=== PATIENT | female | born 1965 | race Caucasian/White ===

== ENCOUNTER → 2020-12-18 10:37 | Outpatient (BNVA) | payer SELFPAY | PROVIDERS: PCP Nurse Practitioner; Visit Provider Dermatology | DX: Z01.89 Encounter for other specified special examinations (principal) ==

== ENCOUNTER → 2021-03-26 08:35 | Outpatient (BNVA) | payer MEDICAID, SELFPAY | PROVIDERS: PCP Nurse Practitioner; Visit Provider Nurse Practitioner | DX: Z00.00 Encounter for general adult medical examination without abnormal findings (principal); Z12.39 Encounter for other screening for malignant neoplasm of breast; Z12.11 Encounter for screening for malignant neoplasm of colon; E66.3 Overweight; Z12.4 Encounter for screening for malignant neoplasm of cervix; Z78.0 Asymptomatic menopausal state | CPT/HCPCS: 88175 ==

== ENCOUNTER 2021-04-02 10:39 | Outpatient (CLI) | payer SELFPAY ==
--- NOTE | 2021-04-02 11:00 | MM_ITS ---
WS: [id number] SCREENING DIGITAL MAMMOGRAM WITH CAD HISTORY: Z12.39 - Encounter for other screening for malignant neoplasm... COMPARISON: None available. Bilateral CC and MLO views submitted. Computer aided detection analyzed. Breast composition: There are scattered areas of fibroglandular density. Subtle asymmetry measuring 6 mm in the anterior lateral LEFT breast near 2:00. This needs further evaluation. Otherwise negative. MM/[place] [id number] IMPRESSION: BI-RADS: 0-Incomplete: Need additional imaging evaluation FOLLOW UP: Need Additional Imaging LEFT breast: Spot compression views (CC and MLO). True ML. Ultrasound to follow if abnormality persists.
== END 2021-04-02 10:40 | disposition home or self-care (01) ==
LOC: RADSHAW 10:44
PROVIDERS: PCP Nurse Practitioner; Visit Provider Nurse Practitioner
DX: Z12.31 Encounter for screening mammogram for malignant neoplasm of breast (principal)
CPT/HCPCS: 77067

== ENCOUNTER → 2021-06-07 08:57 | Outpatient (BNVA) | payer MEDICAID, SELFPAY | PROVIDERS: PCP Nurse Practitioner; Visit Provider Nurse Practitioner | DX: E55.9 Vitamin D deficiency, unspecified (principal) | CPT/HCPCS: 80053; 82306 ==

== ENCOUNTER 2021-06-13 12:35 | Outpatient (CLI) | payer MEDICAID, SELFPAY ==
--- NOTE | 2021-06-13 14:30 | MM_ITS ---
WS: [id number] ADDITIONAL VIEWS LEFT MAMMOGRAM LEFT BREAST ULTRASOUND HISTORY: R92.8 - Other abnormal and inconclusive findings on diagnostic mammogram... COMPARISON: 04/02/2021 LEFT MAMMOGRAM: Spot compression views and true ML. Focal asymmetry measuring 5.3 mm persists in the anterior LEFT breast towards the upper outer quadran t. No distortion. LEFT BREAST ULTRASOUND 2-D and color Doppler imaging submitted. Ultrasound is directed to the LEFT breast in the upper outer quadrant. There is a very vague hypoecho ic nodule measuring 4 x 2 x 3 mm at 2:00, 3 cm from the nipple which probably corresponds to the mamm ographic abnormality. This is not a cyst. MM/[place] [id number] IMPRESSION: BI-RADS: 4-Suspicious Finding-Biopsy Should Be Considered FOLLOW UP: Biopsy Recommended Ultrasound-guided biopsy recommended of the 4 mm nodule LEFT breast at 2:00. Notified DOROTA Morrell at 06/13/2021 4:30 PM. Report called to the jing bhagat.
--- NOTE | 2021-06-13 15:00 | US_ITS ---
WS: [id number] ADDITIONAL VIEWS LEFT MAMMOGRAM LEFT BREAST ULTRASOUND HISTORY: R92.8 - Other abnormal and inconclusive findings on diagnostic mammogram... COMPARISON: 04/02/2021 LEFT MAMMOGRAM: Spot compression views and true ML. Focal asymmetry measuring 5.3 mm persists in the anterior LEFT breast towards the upper outer quadran t. No distortion. LEFT BREAST ULTRASOUND 2-D and color Doppler imaging submitted. Ultrasound is directed to the LEFT breast in the upper outer quadrant. There is a very vague hypoecho ic nodule measuring 4 x 2 x 3 mm at 2:00, 3 cm from the nipple which probably corresponds to the mamm ographic abnormality. This is not a cyst. US/US breast LT limited* [id number] IMPRESSION: BI-RADS: 4-Suspicious Finding-Biopsy Should Be Considered FOLLOW UP: Biopsy Recommended Ultrasound-guided biopsy recommended of the 4 mm nodule LEFT breast at 2:00. Notified DOROTA Morrell at 06/13/2021 4:30 PM. Report called to the jing bhagat.
== END 2021-06-13 12:36 | disposition home or self-care (01) ==
PROVIDERS: PCP Nurse Practitioner; Visit Provider Nurse Practitioner
DX: R92.8 Other abnormal and inconclusive findings on diagnostic imaging of breast (principal); N63.21 Unspecified lump in the left breast, upper outer quadrant
CPT/HCPCS: 76642; 77065

== ENCOUNTER 2021-07-01 07:43 | Outpatient (CLI) | payer MEDICAID, SELFPAY ==
--- NOTE | 2021-07-01 08:00 | US_ITS ---
WS: [id number] ULTRASOUND LEFT BREAST HISTORY: Abnormal LEFT breast ultrasound. COMPARISON: 04/02/2021 and 06/13/2021 TECHNIQUE: 2-D and Doppler. Patient presents for biopsy of a very vague abnormality seen in the LEFT breast by ultrasound on 05/29 and mammographically 04/02/2021. The area of concern is not definitely identified on today's examination. There is a very vague area o f decreased attenuation at 2:00, 3 cm from the nipple. At this time this is not concerning enough to biopsy. I have explained this to the patient. Recommend patient return at 6 months for diagnostic guera mogram. US/US breast LT limited* [id number] IMPRESSION: BI-RADS: 3-Probably Benign FOLLOW-UP: 6 Month Follow-up Patient should return at the 6 month interval to reevaluate the LEFT breast and possible ultrasound of the very vague abnormality described. Six-month evaluat ion would be in September 2021. Diagnostic LEFT breast and possible ultrasound foll ow-up.
== END 2021-07-01 07:44 | disposition home or self-care (01) ==
LOC: RAD 07:46
PROVIDERS: PCP Nurse Practitioner; Visit Provider Nurse Practitioner
DX: R92.8 Other abnormal and inconclusive findings on diagnostic imaging of breast (principal)
CPT/HCPCS: 76642

== ENCOUNTER → 2021-07-08 17:12 | Outpatient (BNVA) | payer MEDICAID, SELFPAY | PROVIDERS: PCP Nurse Practitioner; Visit Provider Nurse Practitioner | DX: R87.619 Unspecified abnormal cytological findings in specimens from cervix uteri (principal) | CPT/HCPCS: 88175 ==

== ENCOUNTER 2021-11-03 12:22 | Emergency (ER) | payer MEDICAID, SELFPAY ==
[2021-11-03 12:26] VITALS: BP 155/95; PULSE 77; RESP 18; TEMP 36.6; O2SAT 98
--- NOTE | 2021-11-03 12:33 | W.ED.ANIMALB ---
HPI - Animal Bite General: Chief Complaint: Animal Bite Stated Complaint: Copperhead bite Time Seen by Provider: 11/03/21 12:28 Source: patient Mode of arrival: ambulatory Limitations: no limitations History of Present Illness: 56-year-old female who states that 30 minutes before arrival she was bit in the right foot by a copperhead. She does have a bite natali to the foot with some swelling to the ankle states she has pain she rates a 6 out of 10 denies any shortness of breath denies any worsening improving factors. Associated symptoms: Deny chills, fever(s) or headache(s) Review of Systems Const: Denies: fever(s), chills, body aches or change in appetite Eyes: Denies: blurry vision or eye discomfort ENMT: Denies: throat pain or dental pain Card: Denies: chest pain Resp: Denies: dyspnea GI: Denies: abdominal pain, nausea, vomiting or diarrhea : Denies: dysuria Musc: Denies: neck pain or back pain Skin/Breast: Denies: rash Neuro: Denies: headache(s) Psych: Denies: depression Bryan/Lymph: Denies: easy bruising All/Imm: Denies: urticaria PFSH ED PFSH: Medical History Overweight (BMI 25.0-29.9) Surgical History History of tubal ligation Family History Other Diabetes Hypertension Denies family history of Dementia Chronic kidney disease (CKD) Lung disease Cancer Stroke Social History Second hand smoke exposure: No Smoking risk assessment/counseling performed?: Yes Alcohol intake: never Desire information about alcohol rehabilitation?: No Counseling given: No Desire information about substance/drug rehabilitation?: No Counseling given: No Adopted: No Caregiver/support person: No Lives independently: Yes Household members: spouse Housing: House Marital status: Number of children: 2 service: No Current occupational status: unemployed Pets and animals: Yes Current gender identity: Female Physical Exam Const: COMMON NORMALS: no acute distress, patient oriented x3 and healthy appearing HENMT: COMMON NORMALS: normocephalic and atraumatic HEAD & SCALP: normocephalic and atraumatic Eye: COMMON NORMALS: Equal, round and reactive pupils present and EOMs intact bilaterally PUPIL: Yes Equal, round and reactive pupils present Neck/C-Spine: COMMON NORMALS: full ROM and supple Chest: COMMONS NORMALS: normal inspection of the chest and normal palpation of entire chest wall Resp: COMMON NORMALS: normal respiratory effort, No retractions, No use of accessory muscles and clear to auscultation bilaterally AUSCULTATION: clear to auscultation bilaterally Cardio: COMMON NORMALS: regular rate, regular rhythm and No murmurs present (Cardio) RATE: regular rate RHYTHM: regular rhythm GI: COMMON NORMALS: Normal to inspection, nondistended, normoactive bowel sounds present, Soft to palpation, non-tender and no masses PALPATION: Yes Soft to palpation Extremity: NARRATIVE EXTREMITY EXAM: swelling to right foot with bite natali Neuro: COMMON NORMALS: patient oriented x3, moves all extremities and no focal motor deficits Psych: COMMON NORMALS: mental status grossly normal, Normal thought process present and cooperative THOUGHT PROCESS: Normal thought process present Skin: COMMON NORMALS: no rashes or lesions noted and no wounds GENERAL SKIN EXAM: no rashes or lesions noted Course Vital Signs: Vital signs: Vital Signs Temperature 97.8 F 11/03/21 12:26 Pulse Rate 74 11/03/21 12:46 Respiratory Rate 16 11/03/21 12:46 Blood Pressure 143/96 11/03/21 12:46 Pulse Oximetry 97 11/03/21 12:46 MDM - Animal Bite Medical Decision Making Patient presents here with a copperhead snake bite she has very minimal swelling did observe her for 2 hours she has had no worsening minimal pain her blood work here is all normal she is stable for discharge we will prescribe her hydrocodone for home informed if she has worsening swelling she is return she understands and agrees to plan. Lab Data : 11/03/21 12:40 11/03/21 13:01 Laboratory Results WBC 9.2 10^3/uL (4.0-10.0) 11/03/21 12:40 RBC 4.82 10^6/uL (4.1-5.3) 11/03/21 12:40 Hgb 13.9 g/dL (11.5-15.3) 11/03/21 12:40 Hct 43.7 % (37.0-47.0) 11/03/21 12:40 MCV 90.7 fl (81-99) 11/03/21 12:40 MCH 28.8 pg (28.0-34.0) 11/03/21 12:40 MCHC 31.8 g/dL (30.0-36.0) 11/03/21 12:40 RDW 13.8 % (12.1-15.1) 11/03/21 12:40 Plt Count 323 10^3/cmm (130-400) 11/03/21 12:40 MPV 10.2 fL (7.4-10.4) 11/03/21 12:40 Neut % (Auto) 53.9 % 11/03/21 12:40 Lymph % (Auto) 34.3 % 11/03/21 12:40 [place] % (Auto) 8.9 % 11/03/21 12:40 Eos % (Auto) 1.7 % 11/03/21 12:40 Baso % (Auto) 0.8 % 11/03/21 12:40 Neut # (Auto) 4.95 10^3/uL (1.8-7.7) 11/03/21 12:40 Lymph # (Auto) 3.2 10^3/uL (0.8-4.8) 11/03/21 12:40 [place] # (Auto) 0.8 10^3/uL (0.2-0.9) 11/03/21 12:40 Eos # (Auto) 0.2 10^3/uL (0.0-0.8) 11/03/21 12:40 Baso # (Auto) 0.1 10^3/uL (0.0-0.1) 11/03/21 12:40 Nucleated RBC % (auto) 0 % 11/03/21 12:40 Nucleated RBCs # 0.0 /100WBC 11/03/21 12:40 PT 13.20 SECONDS (12.1-14.9) 11/03/21 13:01 INR 0.97 (0.8-1.2) 11/03/21 13:01 D-Dimer 0.43 ug/mIFEU (0-0.59) 11/03/21 13:01 Sodium 141 mmol/L (136-145) 11/03/21 13:01 Potassium 3.8 mmol/L (3.5-5.1) 11/03/21 13:01 Chloride 106 mmol/L (98-107) 11/03/21 13:01 Carbon Dioxide 25 mmol/L (22-29) 11/03/21 13:01 Anion Gap 13.8 (5-19) 11/03/21 13:01 BUN 12 mg/dL (6-20) 11/03/21 13:01 Creatinine 0.8 mg/dL (0.5-0.9) 11/03/21 13:01 GFR Calculation Cancelled 11/03/21 12:40 Glucose 107 mg/dL (65-115) 11/03/21 13:01 Calculated Osmolality 292 mOsm/kg (285-295) 11/03/21 13:01 Calcium 9.4 mg/dL (8.5-10.5) 11/03/21 13:01 Total Bilirubin 0.2 mg/dL (0.15-1.2) 11/03/21 13:01 AST 16 U/L (0-32) 11/03/21 13:01 ALT 19 U/L (0-33) 11/03/21 13:01 Alkaline Phosphatase Cancelled 11/03/21 12:40 Total Protein 7.3 g/dL (6.6-8.7) 11/03/21 13:01 Albumin 4.1 g/dL (3.5-5.2) 11/03/21 13:01 Globulin 3.2 g/dL (1.3-4.6) 11/03/21 13:01 Discharge Plan Discharge Patient Disposition: Home Clinical Impression: Snake bite Qualifiers: Encounter type: initial encounter Qualified Code(s): W59.11XA - Bitten by nonvenomous snake, initial encounter Condition: Stable Prescriptions: New hydrocodone-acetaminophen 5-325 mg tablet 1 tab PO Q6H PRN (Reason: pain) Qty: 14 0RF No Action cholecalciferol (vitamin D3) 50 mcg (2,000 unit) tablet 50 mcg PO DAILY Qty: 30 0RF Rx Instructions: getting OTC fluticasone propionate [Flonase Allergy Relief] 50 mcg/actuation spray,suspension 2 spray intranasal DAILY Qty: 16 0RF Rx Instructions: administer into each nostril montelukast [Singulair] 10 mg tablet 10 mg PO DAILY Qty: 30 5RF Discharge Orders: Discharge ED (Routine); Ordered 11/03/21 Ordered By: Dalton Reyes Referrals: Colleen Lassiter, MARKETING EDUCATION TEACHER-C [Primary Care Provider] - 1-3 days Discharge Diet: Advance as tolerated Discharge Activity: Resume usual activity Patient Instructions: Snakebite, Opioid Safety Coding Level of Care Code ED Area Loss Prevention Manager for Chg Fwd Exam Comprehensive
[2021-11-03] MEDS: acetaminophen 325 mg Tablet 650 MG PO (12:45)
[2021-11-03 12:46] VITALS: BP 143/96; PULSE 74; RESP 16; O2SAT 97
[2021-11-03 12:50] LABS: Basophils # 0.1 10^3/uL (0.0-0.1); Basophils % 0.8 %; Eosinophils # 0.2 10^3/uL (0.0-0.8); Eosinophils % 1.7 %; Hematocrit 43.7 % (37.0-47.0); Hemoglobin 13.9 g/dL (11.5-15.3); Lymphocytes # 3.2 10^3/uL (0.8-4.8); Lymphocytes % 34.3 %; Mean Corpuscular HGB Conc 31.8 g/dL (30.0-36.0); Mean Corpuscular Hemoglobin 28.8 pg (28.0-34.0); Mean Corpuscular Volume 90.7 fl (81-99); Mean Platelet Volume 10.2 fL (7.4-10.4); Monocytes # 0.8 10^3/uL (0.2-0.9); Monocytes % 8.9 %; Neutrophils # 4.95 10^3/uL (1.8-7.7); Neutrophils % 53.9 %; Nucleated Red Blood Cells % 0 %; Platelet Count 323 10^3/cmm (130-400); Red Blood Count 4.82 10^6/uL (4.1-5.3); Red Cell Distribution Width 13.8 % (12.1-15.1); White Blood Count 9.2 10^3/uL (4.0-10.0)
[2021-11-03 13:22] LABS: INR 0.97 (0.8-1.2)
[2021-11-03 13:25] LABS: D Dimer 0.43 ug/mIFEU (0-0.59)
[2021-11-03 13:29] LABS: Alanine Aminotransferase 19 U/L (0-33); Albumin Level 4.1 g/dL (3.5-5.2); Alkaline Phosphatase 123 IU/L (35-105); Anion Gap 13.8 (5-19); Aspartate Amino Transferase 16 U/L (0-32); Blood Urea Nitrogen 12 mg/dL (6-20); Calcium 9.4 mg/dL (8.5-10.5); Carbon Dioxide 25 mmol/L (22-29); Chloride 106 mmol/L (98-107); Globulin 3.2 g/dL (1.3-4.6); Glomerular Filtration Rate 73.9 mL/min (90-130); Glucose 107 mg/dL (65-115); Osmolality Calculated 292 mOsm/kg (285-295); Potassium 3.8 mmol/L (3.5-5.1); Sodium 141 mmol/L (136-145); Total Bilirubin 0.2 mg/dL (0.15-1.2); Total Protein 7.3 g/dL (6.6-8.7)
[2021-11-03 14:32] VITALS: BP 135/83; PULSE 71; O2SAT 100
== END 2021-11-03 14:33 | disposition home or self-care (01) ==
PROVIDERS: Emergency Provider Emergency Medicine; PCP Nurse Practitioner
DX: T63.091A Toxic effect of venom of other snake, accidental (unintentional), initial encounter (principal); M79.89 Other specified soft tissue disorders
CPT/HCPCS: 80053; 85025; 85378; 85610; 99283

== ENCOUNTER 2021-12-19 07:46 | Outpatient (CLI) | payer MEDICAID, SELFPAY ==
--- NOTE | 2021-12-19 07:51 | MM_ITS ---
WS: [id number] LEFT DIGITAL BREAST TOMOSYNTHESIS MAMMOGRAPHY WITH CAD. LEFT breast ultrasound, limited HISTORY: 6 month follow-up mammographic abnormality. COMPARISON: 06/13/2021, 04/02/2021 and 07/01/2021 Technique: CC, MLO and ML views. Spot compression CC and MLO. Breast composition: There are scattered areas of fibroglandular density. The asymmetry measuring 4 m m persists in the anterior LEFT breast just lateral to the nipple. No change in size or appearance. W e will attempt to identify this by ultrasound again. LEFT breast ultrasound, limited. By ultrasound the focal asymmetry is not evident. MM/[place] [id number] IMPRESSION: BI-RADS: 3-Probably Benign FOLLOW UP: 6 Month Follow-up Patient to return for annual mammogram in March 2022. This 4 mm nodule will b e reevaluated at that time.
== END 2021-12-19 07:47 | disposition home or self-care (01) ==
LOC: RAD 07:46
PROVIDERS: PCP Nurse Practitioner; Visit Provider Nurse Practitioner
DX: R92.8 Other abnormal and inconclusive findings on diagnostic imaging of breast (principal)
CPT/HCPCS: 76642; 77061

== ENCOUNTER 2022-03-27 20:24 | Inpatient (IN) | payer MEDICAID, SELFPAY ==
[2022-03-27 20:36] VITALS: BP 163/91; PULSE 75; RESP 16; TEMP 36.8; O2SAT 97
--- NOTE | 2022-03-27 20:40 | ECG_ITS ---
[facility] Test Date: 2022-03-27 Pat Name: Janeth Gonzalez Department: Room: Gender: Female Photographer'S Assistant: : 1965 Requested By: Dalton Reyes Order Number: [id number] Emily MD: Delfin Bermudez M.D. Measurements Intervals [place] Rate: 71 P: 63 AR: 154 QRS: 70 QRSD: 88 T: 48 QT: 374 QTc: 407 Interpretive Statements SINUS RHYTHM POSSIBLE LEFT ATRIAL ENLARGEMENT [-0.1mV P-WAVE IN V1/V2] No previous ECG available for comparison Electronically Signed On 03-28-2022 19:05:38 CDT by Delfin Bermudez M.D. [id number] f
--- NOTE | 2022-03-27 20:45 | XRR_ITS ---
PROCEDURE INFORMATION: Exam: XR Chest Exam date and time: 03/27/2022 9:01 PM Age: 56 years old Clinical indication: Pain; Chest pressure; Additional info: Chest pain TECHNIQUE: Imaging protocol: Radiologic exam of the chest. Views: 1 view. COMPARISON: No relevant prior studies available. FINDINGS: Lungs: No CHF/pulmonary edema. Poor inspiration somewhat limits evaluation, especially of the lung bases. Visible lungs appear essentially clear. Pleural spaces: No visible pneumothorax. No definite pleural fluid. Heart/Mediastinum: Heart size is within normal limits. Bones/joints: No significant acute finding. XR/XR chest 1V portable [id number] IMPRESSION: 1. No definite CHF or pneumonia. 2. Other findings discussed above.
--- NOTE | 2022-03-27 20:55 | W.ED.GENADLT ---
HPI - General Adult General: Chief complaint: Chest Pain Stated complaint: Possible Clogged Atery Time Seen by Provider: 03/27/22 20:45 History of Present Illness: Patient is a 56-year-old female with a history of asthma who presents emergency room with concerns of recurrent syncope and chest pressure. Patient tells me that in the last month, she has had 2 episodes of syncope. Both the episode happened while she was leaning against the table and had a little bit of chest pressure. Patient passed out during both episode does not remember what happened. Most recently yesterday, patient has been reporting chest pressure and reports that she was feeling very heavy. Patient with a store when she sat down almost passed out. Patient did not have LOC yesterday. This episode was witnessed by family. Patient called Dr. Ervin at [facility] was told to come to emergency room. Patient denies nausea/vomiting, fever/chill, abdominal pain, dysuria/hematuria/polyuria, diarrhea/melena/hematochezia. Onset: 1 month ago Duration: ongoing intermittent syncopes Location:home Severity:moderate Associated symptoms: Reports chest pain; Deny dyspnea, nausea, rash, palpitations or vomiting Review of Systems Const: Denies: fever(s) or chills Eyes: Denies: change in vision ENMT: Denies: mouth pain Card: Reports: chest pain; Denies: palpitations Resp: Denies: dyspnea or non-productive cough GI: Denies: abdominal pain, nausea, vomiting or diarrhea : Denies: dysuria Musc: Denies: extremity pain Skin/Breast: Denies: rash or new lesions Neuro: Reports: other (+recurrent syncopes); Denies: weakness in extremities Psych: Reports: other (Normal mood) Bryan/Lymph: Denies: easy bruising PFSH ED PFSH: Medical History Asthma Overweight (BMI 25.0-29.9) Surgical History History of tubal ligation Family History Other Diabetes Hypertension Denies family history of Dementia Chronic kidney disease (CKD) Lung disease Cancer Stroke Social History Smoking and tobacco status: never smoked Second hand smoke exposure: No Smoking risk assessment/counseling performed?: Yes Alcohol intake: never Desire information about alcohol rehabilitation?: No Counseling given: No Desire information about substance/drug rehabilitation?: No Counseling given: No Adopted: No Caregiver/support person: No Lives independently: Yes Household members: spouse Housing: House Marital status: Number of children: 2 service: No Current occupational status: unemployed Pets and animals: Yes Current gender identity: Female Physical Exam Const: COMMON NORMALS: alert HENMT: COMMON NORMALS: atraumatic HEAD & SCALP: atraumatic MOUTH: moist mucous membranes not abnormal Eye: COMMON NORMALS: EOMs intact bilaterally and conjunctivae normal CONJUNCTIVA: Yes conjunctivae normal Neck/C-Spine: COMMON NORMALS: full ROM and supple Resp: COMMON NORMALS: normal respiratory effort and clear to auscultation bilaterally AUSCULTATION: clear to auscultation bilaterally Cardio: COMMON NORMALS: regular rate RATE: regular rate OTHER: 2+ radial pulses b/l GI: COMMON NORMALS: Soft to palpation and non-tender PALPATION: Yes Soft to palpation OTHER: No focal TTP. NO guarding rebound, guarding, rigidity. No CVA tenderness to percussion. Neg Palmer/Neg McBurney's point tenderness, no suprabupic tenderness to palpation. Extremity: COMMON NORMALS: full ROM OTHER: No lower extremity swelling Neuro: SENSORIUM/ORIENTATION: Yes alert MOTOR EXAM: No Abnormal motor strength present and Other motor observations present (no focal motor deficits) Psych: COMMON NORMALS: speech normal SPEECH: Yes normal speech MOOD & AFFECT: Yes euthymic mood OTHER: Mental status? Awake, alert, and oriented to self, year, month, location, and situation.? Following simple axial and appendicular commands.? Has appropriate fund of knowledge, comprehension, and insight.? Able to recall and understands pertinent aspects of medical history and current treatment status.? ? Language? Speech is fluent without word-finding difficulties.? Intact naming, expression, dental office receptionist, and repetition.? ? Cranial nerves? 2,3,4,6: PERRL, EOMI with no nystagmus. 5: Intact sensation to light touch, symmetric? 7: Smile symmetrical, no facial droop.? 8: Hearing grossly intact.? 9,10: Normal palate movement.? 11: Normal strength in trapezius bilaterally 12: Tongue protrudes midline.? ? Motor examination? Normal bulk & tone. Strength as follows (R/L): Delts (5/5), Biceps (5/5), Triceps (5/5), Wrist ext (5/5), hip flexors (5/5), plantarflexors (5/5), dorsiflexors (5/5). ? Reflexs? Deep tendon examination (R/L): Biceps (2+/2+), Brachialis (2+/2+), Triceps (2+/2+), Knee jerk (2+/2+), Ankle Jerk (1+, 1+), Plantars (down/down) ? Sensation? Light Touch: Grossly intact and equal in upper and lower extremities bilaterally? Romberg: Negative.? Distal joint position sense intact ? Coordination? Fupibb-db-idmd-finger movements intact without dysmetria or past-pointing.? Rapid fingertaps: preserved amplitude without decriment.? No tremor, myoclonus or truncal ataxia.? ? Gait/stance? Steady, normal narrow base gait with appropriate arm swing and turning.? Tandem gait without hesitation or loss of balance. Course Vital Signs: Vital signs: Vital Signs Temperature 98.3 F 03/27/22 20:36 Pulse Rate 71 03/27/22 21:39 Respiratory Rate 14 03/27/22 21:39 Blood Pressure 128/78 03/27/22 21:39 Pulse Oximetry 97 03/27/22 21:39 Oxygen Delivery Me thod 03/27/22 21:39 [facility] - General Adult Medical Decision Making Patient is a 56-year-old female with a history of asthma who presents emergency room with concerns of recurrent syncope and chest pressure. On physical exam, she is hemodynamically stable. Neurological exam is intact. Patient did not feel lightheadedness upon standing today. EKG today did not show any signs of high degree heart blocks, Brugada, HOCM, WPW or QT prolongation. Initial troponin within normal limit. Her chest appears to be clear. Given the fact the patient has had recurrent syncope with associated chest pain, this is concerning for high risk syncope. She will be admitted to hospital for further work-up. Disposition: admission Lab Data : 03/27/22 20:56 03/27/22 20:56 Laboratory Results WBC 11.5 10^3/uL (4.0-10.0) H 03/27/22 20:56 RBC 4.63 10^6/uL (4.1-5.3) 03/27/22 20:56 Hgb 13.1 g/dL (11.5-15.3) 03/27/22 20:56 Hct 41.6 % (37.0-47.0) 03/27/22 20:56 MCV 89.8 fl (81-99) 03/27/22 20:56 MCH 28.3 pg (28.0-34.0) 03/27/22 20:56 MCHC 31.5 g/dL (30.0-36.0) 03/27/22 20:56 RDW 12.6 % (12.1-15.1) 03/27/22 20:56 Plt Count 315 10^3/cmm (130-400) 03/27/22 20:56 MPV 9.8 fL (7.4-10.4) 03/27/22 20:56 Neut % (Auto) 53.7 % 03/27/22 20:56 Lymph % (Auto) 34.7 % 03/27/22 20:56 [place] % (Auto) 8.6 % 03/27/22 20:56 Eos % (Auto) 1.9 % 03/27/22 20:56 Baso % (Auto) 0.8 % 03/27/22 20:56 Neut # (Auto) 6.16 10^3/uL (1.8-7.7) 03/27/22 20:56 Lymph # (Auto) 4.0 10^3/uL (0.8-4.8) 03/27/22 20:56 [place] # (Auto) 1.0 10^3/uL (0.2-0.9) H 03/27/22 20:56 Eos # (Auto) 0.2 10^3/uL (0.0-0.8) 03/27/22 20:56 Baso # (Auto) 0.1 10^3/uL (0.0-0.1) 03/27/22 20:56 Nucleated RBC % (auto) 0 % 03/27/22 20:56 Nucleated RBCs # 0.0 /100WBC 03/27/22 20:56 Sodium 140 mmol/L (136-145) 03/27/22 20:56 Potassium 3.7 mmol/L (3.5-5.1) 03/27/22 20:56 Chloride 104 mmol/L (98-107) 03/27/22 20:56 Carbon Dioxide 26 mmol/L (22-29) 03/27/22 20:56 Anion Gap 13.7 (5-19) 03/27/22 20:56 BUN 13 mg/dL (6-20) 03/27/22 20:56 Creatinine 0.6 mg/dL (0.5-0.9) 03/27/22 20:56 GFR Calculation 103.0 mL/min (90-130) 03/27/22 20:56 Glucose 113 mg/dL (65-115) 03/27/22 20:56 Calculated Osmolality 291 mOsm/kg (285-295) 03/27/22 20:56 Calcium 9.2 mg/dL (8.5-10.5) 03/27/22 20:56 Troponin T Baseline 6 ng/L (0-10) 03/27/22 20:56 Discharge Plan Discharge Patient Disposition: Admitted As Inpatient Clinical Impression: Syncope and collapse, Chest pressure Condition: Stable Coding Level of Care Code ED Administrative Support Assoc for Khurramg Fwd Exam Comprehensive
--- NOTE | 2022-03-27 21:02 | CTR_ITS ---
PROCEDURE INFORMATION: Exam: CT Head Without Contrast Exam date and time: 03/27/2022 9:22 PM Age: 56 years old Clinical indication: Syncope and collapse TECHNIQUE: Imaging protocol: Computed tomography of the head without contrast. Radiation optimization: All CT scans at this facility use at least one of these dose optimization techniques: automated exposure control; mA and/or kV adjustment per patient size (includes targeted exams where dose is matched to clinical indication); or iterative reconstruction. COMPARISON: No relevant prior studies available. RADIATION DOSE METRICS: Total DLP (mGy-cm): 1104.88 FINDINGS: Brain: No acute intracranial hemorrhage or mass effect. No definite acute infarct by CT. MRI could be more sensitive/specific for detection, as clinically directed. Cerebral ventricles: Ventricle size is normal for age. Paranasal sinuses: Included paranasal sinuses are essentially clear. Mastoid air cells: No significant acute finding. Bones/joints: No definite acute skull fracture. Soft tissues: No significant acute finding. CT/CT head wo con* [id number] IMPRESSION: 1. No acute intracranial hemorrhage or mass effect. 2. No definite acute infarct by CT, see above. 3. Other findings discussed above.
[2022-03-27 21:14] LABS: Basophils # 0.1 10^3/uL (0.0-0.1); Basophils % 0.8 %; Eosinophils # 0.2 10^3/uL (0.0-0.8); Eosinophils % 1.9 %; Hematocrit 41.6 % (37.0-47.0); Hemoglobin 13.1 g/dL (11.5-15.3); Lymphocytes % 34.7 %; Mean Corpuscular HGB Conc 31.5 g/dL (30.0-36.0); Mean Corpuscular Hemoglobin 28.3 pg (28.0-34.0); Mean Corpuscular Volume 89.8 fl (81-99); Mean Platelet Volume 9.8 fL (7.4-10.4); Monocytes % 8.6 %; Neutrophils # 6.16 10^3/uL (1.8-7.7); Neutrophils % 53.7 %; Nucleated Red Blood Cells % 0 %; Platelet Count 315 10^3/cmm (130-400); Red Blood Count 4.63 10^6/uL (4.1-5.3); Red Cell Distribution Width 12.6 % (12.1-15.1); White Blood Count 11.5 10^3/uL (4.0-10.0)
[2022-03-27 21:33] LABS: Blood Urea Nitrogen 13 mg/dL (6-20); Calcium 9.2 mg/dL (8.5-10.5); Carbon Dioxide 26 mmol/L (22-29); Chloride 104 mmol/L (98-107); Glucose 113 mg/dL (65-115); Osmolality Calculated 291 mOsm/kg (285-295); Sodium 140 mmol/L (136-145); Troponin(5th) Baseline 6 ng/L (0-10)
[2022-03-27 21:38] LABS: Anion Gap 13.7 (5-19); Potassium 3.7 mmol/L (3.5-5.1)
[2022-03-27 21:39] VITALS: BP 128/78; PULSE 71; RESP 14; O2SAT 97
[2022-03-27] MEDS: lactated ringers 1,000 ML 999 ML IV (21:43)
--- NOTE | 2022-03-27 22:45 | ECG_ITS ---
[facility] Test Date: 2022-03-27 Pat Name: Janeth Gonzalez Department: Room: 259 Gender: Female Clerical Order Filler: : 1965 Requested By: Stephan Enrique Order Number: [id number] Emily MD: Delfin Bermudez M.D. Measurements Intervals [place] Rate: 57 P: 58 PA: 159 QRS: 65 QRSD: 92 T: 52 QT: 404 QTc: 396 Interpretive Statements SINUS BRADYCARDIA Compared to ECG 03/27/2022 20:40:43 Sinus rhythm no longer present Electronically Signed On 03-28-2022 19:10:16 CDT by Delfin Bermudez M.D. [id number]
[2022-03-27 23:52] LABS: Troponin 5 2HR Delta 0 ABS# (0-10)
--- NOTE | 2022-03-27 23:59 | P.HP_ITS ---
Providers/Chief Complaint Admitting Physician: Brennan Bass MD Primary Care Provider: Colleen Lassiter, TELEVISION REPAIR TEACHER-C Chief Complaint: Possible Clogged Atery History of Present Illness Janeth Gonzalez is a 56 year old female with past medical history of asthma came in with chief complaint of What she describes is very vague, but appears to be presyncopal, possibly syncopal episode, according to the patient for the last 1 month or so, she had possibly 3 episodes of transient blackout episodes, lasting for few seconds, with full regain of consciousness, no confusion after regaining consciousness, prior to occurrence of these episodes she does have some chest tightness, as well as some nonspecific funny sensations, during the last episode she was also complaining of swaying to the sides. She has denied any Shortness of breath, cough fever nausea vomiting, palpitation.At baseline she is very active person, she denied any chest pain, or shortness of breath even while she is exercising on treadmill up to a month back. She does complain of dyspepsia. Given her presentation remote possibility of absence or pseudo seizures exist. Pertinent imaging studies done in the ER: CT head without contrast: No acute intracranial pathology X-ray chest: No significant findings EKG: Sinus bradycardia. Pertinent labs: WBC 11.5, H&H:13/41 , plt : 315 , serum sodium 140 , serum potassium 3.7, BUN and serum creatinine 30 and 0.6 , Troponin: 6 - 6 Review of Systems General: Reports: 10 or more systems reviewed and unremarkable except in HPI and below Const: Denies: fever(s), chills, body aches, change in appetite or diaphoresis Card: Denies: palpitations, edema, swelling of feet/ankles, dyspnea on exertion, orthopnea or leg pain with exertion Resp: Denies: dyspnea, productive cough, wheezing or pain on inspiration GI: Denies: abdominal pain, nausea, vomiting, diarrhea or constipation : Denies: flank pain Musc: Denies: back pain, extremity pain or extremity swelling Neuro: Denies: headache(s), difficulty walking or confusion Medications/Allergies Home Medications Medication Instructions Recorded Confirmed Last Taken Type fluticasone propionate 50 2 spray intranasal DAILY #16 grams 01/18/21 11/07/21 Unknown Rx mcg/actuation nasal spray,suspension (Flonase Allergy Relief) cholecalciferol (vitamin D3) 50 50 mcg PO DAILY #30 tabs 06/14/21 11/07/21 Unknown Rx mcg (2,000 unit) tablet montelukast 10 mg tablet 10 mg PO DAILY #30 tabs 07/24/21 11/07/21 Unknown Rx (Singulair) hydrocodone 5 mg-acetaminophen 325 1 tab PO Q6H PRN pain #14 tabs 11/03/21 11/07/21 Unknown Rx mg tablet Allergies Allergy/AdvReac Type Severity Reaction Status Date / Time No Known Allergies Allergy Verified 11/03/21 12:28 PFSH Acute PFSH: Medical History Asthma Overweight (BMI 25.0-29.9) Surgical History History of tubal ligation Family History Other Diabetes Hypertension Denies family history of Dementia Chronic kidney disease (CKD) Lung disease Cancer Stroke Social History Smoking and tobacco status: never smoked Second hand smoke exposure: No Smoking risk assessment/counseling performed?: Yes Alcohol intake: never Desire information about alcohol rehabilitation?: No Counseling given: No Desire information about substance/drug rehabilitation?: No Counseling given: No Adopted: No Caregiver/support person: No Lives independently: Yes Household members: spouse Housing: House Marital status: Number of children: 2 service: No Current occupational status: unemployed Pets and animals: Yes Current gender identity: Female Vitals/I&O/Wt Last Vital Signs Temp 98.3 F 03/27/22 20:36 Pulse 71 03/27/22 21:39 Resp 14 03/27/22 21:39 BP 128/78 03/27/22 21:39 Pulse Ox 97 03/27/22 21:39 O2 Del Method 03/27/22 22:43 Weight last 48 hrs Weight 79.379 kg Physical Exam HENMT: COMMON NORMALS: normocephalic and atraumatic HEAD & SCALP: normocephalic and atraumatic Resp: COMMON NORMALS: clear to auscultation bilaterally EFFORT & INSP ECTION: Yes symmetric chest movement AUSCULTATION: clear to auscultation bilaterally Cardio: COMMON NORMALS: regular rate, regular rhythm, S1 normal heart sound present, S2 normal heart sound present, No gallops present (Cardio), No murmurs present (Cardio), No rub (Cardio) and Peripheral pulses 2+ throughout RATE: regular rate RHYTHM: regular rhythm HEART SOUNDS: S1 normal heart sound present and S2 normal heart sound present PERIPHERAL PULSES: Peripheral pulses 2+ throughout GI: COMMON NORMALS: Normal to inspection, nondistended, normoactive bowel sounds present, Soft to palpation, non-tender, No hepatosplenomegaly present and no masses AUSCULTATION: Yes normoactive bowel sounds PALPATION: Yes Soft to palpation and Yes No hepatosplenomegaly present RECTAL EXAM: deferred Extremity: COMMON NORMALS: no clubbing, cyanosis or edema and no pedal edema Neuro: COMMON NORMALS: patient oriented x3 Data : 03/28/22 02:53 03/28/22 02:53 A&P Assessment and plan (1) Syncope and collapse: (2) Chest pressure: (3) Asthma: Plan 56 year old female with past medical history of asthma came in with chief complaint of What she describes is very vague, but appears to be presyncopal, possibly syncopal episode, according to the patient for the last 1 month or so, she had possibly 3 episodes of transient blackout episodes, lasting for few seconds, with full regain of consciousness, no confusion after regaining consciousness, prior to occurrence of these episodes she does have some chest tightness. Assessment: Syncope/presyncope Possible pseudoseizures/absence seizure Dyspepsia Chest tightness Plan: Follow 2D echo Carotid Doppler Orthostatic vital sign Abdominal ultrasound TSH Prolactin B12 Folic acid Lipid panel HbA1c proBNP Patient may need event monitor on discharge Possible EEG as outpatient. Possible MRI brain CODE STATUS: Full code DVT prophylaxis: On Lovenox Attestations Medical Necessity Statement*: Patient is to be in hospital for management of presyncope, chest tightness. Time Spent in Patient Care: Greater than 35 minutes (>than 50% of time spent in counselling and/or direct pt care on unit) . 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
[2022-03-28] MEDS: sodium chloride 0.9% 1,000 ML 75 ML IV ×2 (00:10→15:07)
[2022-03-28] MEDS: enoxaparin 40 mg/0.4 mL Syringe SUBCUT ×2 (00:13→23:33)
[2022-03-28 02:30] VITALS: PULSE 69; O2SAT 96
--- NOTE | 2022-03-28 02:45 | ECG_ITS ---
[facility] Test Date: 2022-03-28 Pat Name: Janeth Gonzalez Department: Room: 259 Gender: Female Internal Communications Specialist: : 1965 Requested By: Stephan Enrique Order Number: [id number] Emily MD: Delfin Bermudez M.D. Measurements Intervals [place] Rate: 61 P: 55 SC: 168 QRS: 62 QRSD: 88 T: 43 QT: 411 QTc: 417 Interpretive Statements SINUS RHYTHM Compared to ECG 03/27/2022 22:21:45 Sinus bradycardia no longer present Electronically Signed On 03-28-2022 19:11:28 CDT by Delfin Bermudez M.D. [id number]
[2022-03-28 03:52] LABS: Basophils % 0.4 %; Eosinophils # 0.2 10^3/uL (0.0-0.8); Eosinophils % 2.3 %; Hematocrit 38.5 % (37.0-47.0); Hemoglobin 11.9 g/dL (11.5-15.3); Lymphocytes # 3.7 10^3/uL (0.8-4.8); Lymphocytes % 40.8 %; Mean Corpuscular HGB Conc 30.9 g/dL (30.0-36.0); Mean Corpuscular Hemoglobin 28.3 pg (28.0-34.0); Mean Corpuscular Volume 91.7 fl (81-99); Mean Platelet Volume 9.9 fL (7.4-10.4); Monocytes # 0.8 10^3/uL (0.2-0.9); Monocytes % 8.7 %; Neutrophils # 4.35 10^3/uL (1.8-7.7); Neutrophils % 47.6 %; Nucleated Red Blood Cells % 0 %; Platelet Count 279 10^3/cmm (130-400); Red Cell Distribution Width 12.7 % (12.1-15.1); White Blood Count 9.2 10^3/uL (4.0-10.0)
[2022-03-28 04:00] VITALS: BP 129/87; PULSE 66; RESP 16; TEMP 36.8; O2SAT 95
[2022-03-28 04:06] LABS: INR 1.04 (0.8-1.2)
[2022-03-28 04:07] LABS: Partial Thromboplastin Time 34.5 SECONDS (23.9-36.7)
[2022-03-28 04:20] LABS: Estmated Average Glucose 111; Hemoglobin A1C 5.5 % (4.0-6.0)
[2022-03-28 04:25] LABS: Troponin 5 6HR Delta 0 ng/L (0-12)
[2022-03-28 04:26] LABS: Chol HDL Ratio 4.03 mg/dL (0.0-4.40); Cholesterol 149 mg/dL (0-200); HDL Cholesterol 37 mg/dL (60-100); LDL Cholesterol Calculated 90 mg/dL (50-129); LDL HDL Ratio 2.43 RATIO (0.00-3.22); NT Pro B Type Natriuretic Pept 33 pg/mL (0-125); Triglycerides 111 mg/dL (0-150)
[2022-03-28 04:29] LABS: Alanine Aminotransferase 17 U/L (0-33); Albumin Level 3.6 g/dL (3.5-5.2); Alkaline Phosphatase 113 U/L (35-105); Anion Gap 13.7 (5-19); Aspartate Amino Transferase 13 U/L (0-32); Blood Urea Nitrogen 10 mg/dL (6-20); Calcium 8.9 mg/dL (8.5-10.5); Carbon Dioxide 23 mmol/L (22-29); Chloride 106 mmol/L (98-107); Globulin 2.4 g/dL (1.3-4.6); Glucose 97 mg/dL (65-115); Osmolality Calculated 287 mOsm/kg (285-295); Phosphorus 3.4 mg/dL (2.5-4.5); Potassium 3.7 mmol/L (3.5-5.1); Sodium 139 mmol/L (136-145); Total Bilirubin 0.2 mg/dL (0.15-1.2)
[2022-03-28 04:59] LABS: Folate Level 13.3 ng/mL (4.8-37.3); Prolactin 8.97 ng/mL (4.8-23.3); Vitamin B12 378 pg/mL (232-1245)
[2022-03-28 08:00] VITALS: BP 115/74; BP 120/80; BP 133/89; BP 145/88; PULSE 62; PULSE 64; PULSE 72; PULSE 78; RESP 16; TEMP 36.5; O2SAT 93
--- NOTE | 2022-03-28 11:47 | PC.CHAP ---
Pastoral Care Encounter/Spiritual Assessment Type of Contact [] Declined plaster form maker visit [] Patient/Family/Request visit [] Outpatient visit [] Follow-up visit [] Physician referral [] Code/Alert [x] Routine visit [] Staff referral [] Actively dying [] Patient sleeping [] Family support [] [] Out of room [] Palliative care [] [] Receiving care in room [] Pre-surgical visit [] Trauma [] Long length of stay [] ICU visit [] Other: Relational/Emotional Strength x [] Patient feels connected with others/family/visitors/staff [] Distress [] Loneliness/isolation [] Abandonment Spirituality of Patient [x] Person of Debbie [x Attends Sabianist of their Debbie [x] Believes in Prayer [] Reads Bible or Latter Day materials [] There are Spiritual issues to be addressed Wing Coverer Interventions [x] Prayer [] Active listening [] Non-anxious presence [] Spiritual/emotional support [] Crisis/trauma care [] Spiritual counseling [] Bereavement support [] Provided bereavement packet [] Provided Bible/devotional materials [] Provided toy/stuffed animal, coloring book to patient or family member [] Provided Communion [] Anointing/[place] [] Salvation [x] Completed spiritual assessment [] Other: Impact on Illness or Injury [] Angry [] Fearful [] Anxious [] Often cries [] Exhaustion [] Unable to work [] Unable to attend mormonism [] Unable to walk/stand [] Unable to read [] Unable to drive [] Unable to eat/drink [] Unable to sleep [] Unable to be with family [] Patient intubated [] Other: Summary Time spent with patient
[2022-03-28 11:58] VITALS: BP 115/74; PULSE 64; RESP 16; TEMP 36.6; O2SAT 94
--- NOTE | 2022-03-28 14:06 | PM.PN ---
Subjective Subjective: Patient seen at bedside. Family member present. She states that she gets lightheaded and body starts to feel heavy from time to time but she also has chest tightness. Chest tightness comes and goes. She denies a history of anxiety or depression. He states this just started very recently. She says she has had multiple episodes where she has blacked out and just found herself on the floor. She states sometimes it is when she is standing for a long time and she gets lightheaded and sometimes it is hard to tell. However the chest tightness is very persistent symptoms with all of these episodes. She would also like to know results of her abdominal ultrasound that were done for evaluation of gallbladder. Patient has not had a cardiac work-up before. Vitals/I&O/Wt Last Vital Signs Temp 97.9 F 03/28/22 11:58 Pulse 64 03/28/22 11:58 Resp 16 03/28/22 11:58 BP 115/74 03/28/22 11:58 Pulse Ox 94 03/28/22 11:58 O2 Del Method 03/28/22 11:58 03/27/22 03/28/22 03/28/22 22:59 06:59 14:59 Intake Total 1000 / 1000 120 / 120 Balance 1000 / 1000 120 / 120 Weight last 48 hrs Weight 79.379 kg Physical Exam Const: COMMON NORMALS: patient oriented x3 HENMT: COMMON NORMALS: normocephalic and atraumatic HEAD & SCALP: normocephalic and atraumatic Resp: COMMON NORMALS: clear to auscultation bilaterally EFFORT & INSPECTION: Yes symmetric chest movement AUSCULTATION: clear to auscultation bilaterally Cardio: COMMON NORMALS: regular rate, regular rhythm, S1 normal heart sound present, S2 normal heart sound present, No gallops present (Cardio), No murmurs present (Cardio), No rub (Cardio) and Peripheral pulses 2+ throughout RATE: regular rate RHYTHM: regular rhythm HEART SOUNDS: S1 normal heart sound present and S2 normal heart sound present PERIPHERAL PULSES: Peripheral pulses 2+ throughout GI: COMMON NORMALS: Normal to inspection, nondistended, normoactive bowel sounds present, Soft to palpation, non-tender, No hepatosplenomegaly present and no masses AUSCULTATION: Yes normoactive bowel sounds PALPATION: Yes Soft to palpation and Yes No hepatosplenomegaly present RECTAL EXAM: deferred Extremity: COMMON NORMALS: no clubbing, cyanosis or edema and no pedal edema Neuro: COMMON NORMALS: patient oriented x3 Data : 03/28/22 02:53 03/28/22 02:53 A&P Assessment and plan (1) Syncope and collapse: (2) Chest pressure: (3) Asthma: Plan 56 year old female with past medical history of asthma came in with chief complaint of What she describes is very vague, but appears to be presyncopal, possibly syncopal episode, according to the patient for the last 1 month or so, she had possibly 3 episodes of transient blackout episodes, lasting for few seconds, with full regain of consciousness, no confusion after regaining consciousness, prior to occurrence of these episodes she does have some chest tightness. Assessment: Syncope/presyncope Possible pseudoseizures/absence seizure Dyspepsia Chest tightness Plan: Follow 2D echo?results pending Carotid Doppler?50% stenosis in carotid. Orthostatic vital sign are negative Abdominal ultrasound was a difficult study. Difficult to visualize gallbladder. Stones cannot be ruled out. There is decreased thickening however. I will order HIDA scan. TSH 1.40 Prolactin 8.97 B12 378 Folic acid 13.3 Lipid panel complete. Cholesterol 149, LDL 90, HDL 37 HbA1c 5.5 proBNP 33 I agree with admitting physician. Patient will need event monitor at discharge. In the meantime we will continue to monitor on telemetry. I will order stress test for Thursday morning ? We will order HIDA scan Possible EEG as outpatient. Discussed all of the above with the patient. All questions answered. If patient has chest tightness again will obtain EKG and check troponins. Initial troponin series negative. CODE STATUS: Full code DVT prophylaxis: On Lovenox Attestations Medical Necessity Statement*: Patient is to be in hospital for management of presyncope, chest tightness. Time Spent in Patient Care: Greater than 35 minutes (>than 50% of time spent in counselling and/or direct pt care on unit). 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
[2022-03-28 16:00] VITALS: BP 124/74; PULSE 69; RESP 18; TEMP 36.7; O2SAT 97
--- NOTE | 2022-03-28 17:07 | PM.CONSULT ---
Providers/Reason For Consult Consulting Physician/Specialty*: Manuel Cerna MD/ Cardiology Reason for Consult*: Syncope/ Chest pain Requesting Physician: Dr Duffy Attending Physician: Whitney Duffy MD Primary Care Provider: DOROTA Morrell History of Present Illness History of Present Illness Janeth Gonzalez is a 56 year old female with past medical history of asthma who presented to the hospital with the symptoms of presyncope. According to patient in the last 1 month she had 3 episodes of blacking out. On 1 occasion she ate and right after that felt a chest discomfort in the chest going to her face and she lost consciousness for a few seconds. It was a witnessed event by the family. There was no seizure-like activity at that time with it. She again had episode while she was walking and felt wobbly however did not pass out. Has occasional chest discomfort after eating. Nonexertional. Echo shows systolic function is normal. EKG shows normal sinus rhythm with no arrhythmias. Telemetry is showing brief event of irregular rhythm. However has significant baseline artifact. Carotid duplex does not show significant abnormality. Troponins did not trend up. Review of Systems General: Reports: 10 or more systems reviewed and unremarkable except in HPI and below Const: Denies: fever(s), chills, body aches, change in appetite or diaphoresis Card: Denies: palpitations, edema, swelling of feet/ankles, dyspnea on exertion, orthopnea or leg pain with exertion Resp: Denies: dyspnea, productive cough, wheezing or pain on inspiration GI: Denies: abdominal pain, nausea, vomiting, diarrhea or constipation : Denies: flank pain Musc: Denies: back pain, extremity pain or extremity swelling Neuro: Denies: headache(s), difficulty walking or confusion Medications/Allergies Home Medications Medication Instructions Recorded Confirmed Last Taken Type fluticasone propionate 50 2 spray intranasal DAILY #16 grams 01/18/21 03/28/22 Unknown Rx mcg/actuation nasal spray,suspension (Flonase Allergy Relief) cholecalciferol (vitamin D3) 50 50 mcg PO DAILY #30 tabs 06/14/21 03/28/22 Unknown Rx mcg (2,000 unit) tablet montelukast 10 mg tablet 10 mg PO DAILY #30 tabs 07/24/21 03/28/22 Unknown Rx (Singulair) ascorbic acid (vitamin C) 500 mg 500 mg PO DAILY 03/28/22 03/28/22 Unknown History capsule,extended release (Vitamin C) jzaedhoa-lfu-bdoll ac 400 1 tab PO DAILY 03/28/22 03/28/22 Unknown History mcg-calcium carb 500 mg-vit K1 20 mcg tablet (Women's 50 Plus Multivitamin) Allergies Allergy/AdvReac Type Severity Reaction Status Date / Time No Known Allergies Allergy Verified 03/28/22 08:05 Current Medications Generic Name Dose Route Start Last Admin Trade Name Marta PRN Reason Stop Dose Admin Enoxaparin Sodium 40 mg 03/28/22 00:15 03/28/22 00:13 Enoxaparin 40 Mg/0.4 Ml Syringe SUBCUT 40 mg Q24H SPRING Administration Sodium Chloride 1,000 mls @ 75 mls/hr 03/27/22 23:45 03/28/22 15:07 Sodium Chloride 0.9% IV 75 mls/hr .[id number] SPRING Administration Pantoprazole Sodium 40 mg 03/28/22 09:00 03/28/22 09:[address] 40 Mg Tablet PO Not Given DAILY SPRING PFSH Acute PFSH: Medical History Asthma Overweight (BMI 25.0-29.9) Surgical History History of tubal ligation Family History Other Diabetes Hypertension Denies family history of Dementia Chronic kidney disease (CKD) Lung disease Cancer Stroke Social History Smoking and tobacco status: never smoked Second hand smoke exposure: No Smoking risk assessment/counseling performed?: Yes Alcohol intake: never Desire information about alcohol rehabilitation?: No Counseling given: No Desire information about substance/drug rehabilitation?: No Counseling given: No Adopted: No Caregiver/support person: No Lives independently: Yes Household members: spouse Housing: House Marital status: Number of children: 2 service: No Current occupational status: unemployed Pets and animals: Yes Current gender identity: Female Vitals/I&O/Wt Last Vital Signs Temp 98.0 F 09/30/22 16:00 Pulse 69 03/28/22 16:00 Resp 18 03/28/22 16:00 BP 124/74 03/28/22 16:00 Pulse Ox 97 03/28/22 16:00 O2 Del Method 03/28/22 16:00 03/28/22 03/28/22 03/28/22 06:59 14:59 22:59 Intake Total 1000 / 1000 1070 / 1070 Balance 1000 / 1000 1070 / 1070 Weight last 48 hrs Weight 175 lb Physical Exam Narrative: GENERAL: Patient is alert, awake and oriented x3. [] NECK: No jugular vein distension. [] HEENT: No cyanosis. No icterus. No pallor. [] HEART: Regular S1 and S2. No murmur, rub or gallop. [] LUNGS: Clear to auscultate bilaterally. [] CENTRAL NERVOUS SYSTEM: Grossly nonfocal. [] EXTREMITIES: Lower extremities with no edema bilaterally. Pulses palpable in the lower extremities, both dorsalis pedis and posterior tibial. [] Data : 03/29/22 05:20 03/29/22 06:14 A&P Assessment and plan (1) Syncope and collapse: (2) Chest pressure: (3) Asthma: Plan Patient's symptoms are atypical. No evidence of heart block on telemetry. Had an episode of irregular beats however because of baseline artifact, no interpretation was possible. Will recommend continuing telemetry for now. To rule out ischemia, stress test is needed. Ideally she needs inpatient work-up. Patient does not want to stay in the hospital over the weekend to wait for stress test. If she decides to get further work-up as outpatient, she will need event monitoring and urgent outpatient stress test. Her symptoms are atypical. Echo does not show any LV systolic dysfunction. No pauses or heart block noted on telemetry so far. ER warning symptoms and signs informed. Patient understands it. Thank you for involving us with care of this patient. If she decides to stay inpatient for further work-up, we will continue to follow. Please call with questions. Consult Attestations Medical Necessity Statement: Care expected to cross 2 midnights. 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
--- NOTE | 2022-03-28 19:05 | PC.NURSE ---
Bedside report give to Cecilia ch RN at this time
[2022-03-28 20:02] VITALS: BP 129/80; PULSE 71; RESP 16; TEMP 36.6; O2SAT 95
--- NOTE | 2022-03-28 23:49 | USCV_ITS ---
Janeth Gonzalez Age: 56 Gender: F : 1965 Exam Date: 03/28/2022 01:07 Ordering Phys: Brennan Bass MD Technologist: LEANDRO Exam Location: [facility] [place] Indication: two episodes of syncope in the last 6 weeks. No DM. Nonsmoker. No history of cardiac intervention per patient. BP: 128 / 78 HR: 71 Rhythm: Sinus Technical Quality: Adequate MEASUREMENTS (Male / Female) Normal Values 2D ECHO LV Diastolic Diameter PLAX 3.9 cm 4.2 - 5.9 / 3.9 - 5.3 cm LV Systolic Diameter PLAX 2.6 cm IVS Diastolic Thickness 1.2 cm 0.6 - 1.0 / 0.6 - 0.9 cm IVS Systolic Thickness 1.7 cm LVPW Diastolic Thickness 1.1 cm 0.6 - 1.0 / 0.6 - 0.9 cm LVPW Systolic Thickness 1.4 cm LVOT Diameter 1.8 cm LV Ejection Fraction 2D Teich 62.6 % LV Ejection Fraction MOD 2C 63.1 % LV Ejection Fraction 2C AL 64.8 % LA Diameter 3.2 cm LA Width 4.2 cm LA Height 5.3 cm RA Width 3.3 cm RA Height 4.9 cm Aorta at Sinotubular Diameter 3.1 cm IVC Diameter 1.7 cm M-MODE Aortic Annulus Diameter 2.2 cm LA Ao Ratio MM 1.4 MV E Point Septal Separation 0.2 cm DOPPLER AV Peak Velocity 143.0 cm/s LVOT Peak Velocity 95.0 cm/s AV Area Cont Eq vti 2.1 cm squared AV Area Cont Eq pk 1.8 cm squared MV Area PHT 4.5 cm squared Mitral E to A Ratio 0.9 MV E' Velocity 52.5 cm/s Mitral E to MV E' Ratio 8.8 Mitral E to LV E' Lateral Ratio 8.0 Mitral E to LV E' Septal Ratio 10.0 TR Peak Velocity 237.0 cm/s TR Peak Gradient 22.5 mmHg TV Peak E Velocity 50.0 cm/s Right Atrial Pressure 5.0 mmHg Pulmonary Artery Systolic Pressu 27.5 mmHg PV Peak Velocity 98.0 cm/s RV Acceleration Time 0.1 s RV Ejection Time 0.4 s RV AcT/ET 0.3 FINDINGS Left Ventricle Normal left ventricular size and systolic function, EF 61 %. No regional wall motion abnormalities. Right Ventricle The right ventricle is normal in size and function. Right Atrium The right atrium is normal in size. Left Atrium The left atrium is normal in size. Mitral Valve No gross abnormalities noted Aortic Valve No gross abnormalities noted Tricuspid Valve Mild tricuspid valve regurgitation. Pulmonic Valve Trace pulmonary valve regurgitation. Pericardium No pericardial effusion. Aorta Normal ascending aorta dimension. IVC The inferior vena cava appears normal. CONCLUSIONS Normal left ventricular size and systolic function, EF 61 %. No regional wall motion abnormalities. Mild tricuspid valve regurgitation. Estimated pulmonary artery peak systolic pressure 28 mmHg There is no pericardial effusion. There are no intracardiac masses. No similar previous studies are available for comparison Dr Delfin Bermudez MD FACC (Electronically Signed) Final Date: 28 March 2022 18:14 S
--- NOTE | 2022-03-28 23:49 | USCV_ITS ---
Janeth Gonzalez Age: 56 Gender: F : 1965 Exam Date: 03/28/2022 00:41 Ordering Phys: Brennan Bass MD Technologist: LEANDRO Exam Location: [facility] [place] Indication: two episodes of syncope in the last 6 weeks. No DM. Non-smoker. Risk Factors: Previous Vascular Surgery: Right Brachial BP: / Left Brachial BP: / Right Left Velocity (cm/s) Spectral Plaque Velocity (cm/s) Spectral Plaque Syst/Diast Broadening Syst/Diast Broadening 102.50/37.50 None None Prox CCA 121.30/ 34.20 None None 74.60/ 17.90 None None Mid CCA 102.50/ 28.70 None None 77.70/ 27.20 None None Distal CCA 97.00 / 33.10 None None 83.10/ 31.10 Min Jair Prox ICA 94.80 / 28.70 Min Homo 90.40/ 39.70 Min Homo Mid ICA 111.40/ 54.00 Min Homo 106.20/45.80 Min Homo Distal ICA 118.00/ 49.60 Min Hetro 86.20 Min Homo ECA 88.20 Min Homo 1.04 ICA/CCA 0.97 Antegrade Vertebral Antegrade 62.10/ 26.40 cm/s 50.70/ 16.50 cm/s Bi Subclavian Tri 108.0 98.00 0 FINDINGS Comparison: none available. No significant elevation of systolic or diastolic velocities. Waveforms are normal. Minimal carotid atherosclerosis in the bifurcations. Antegrade vertebral arteries. CONCLUSIONS Bilateral ICA stenosis less than 50%. Minimal carotid atherosclerosis. Dr. Marisel Vicente DO (Electronically Signed) Final Date: 28 March 2022 07:43 S
--- NOTE | 2022-03-28 23:50 | US_ITS ---
WS: [id number] Complete ABDOMINAL ULTRASOUND HISTORY: epigastric pain COMPARISON: None available. Liver: 14.6 cm in length. Normal size liver. Increased coarse echotexture throughout the liver. No ma ss or bile duct dilatation. Portal Vein: Normal hepatopetal flow with monophasic waveform. Gallbladder: Limited evaluation of the gallbladder due to habitus. The gallbladder wall appears mildl y diffusely thickened but no pericholecystic fluid. No definite stones are identified. There is shado wing from the neck of the gallbladder which could be adjacent bowel. Gallbladder wall thickness: 0.4 cm. Pancreas: Not well visualized. Tail is completely obscured. CBD: 0.4 cm. Right kidney: 9.6 cm x 4.5 cm x 4.7 cm. No mass, cortical thickening or hydronephrosis. Left kidney: 10.7 cm x 5.2 cm x 4.4 cm. No mass, cortical thickening or hydronephrosis. Spleen: Normal size and echogenicity. Abdominal aorta and IVC are within normal limits. No ascites. US/US abdomen complete* [id number] IMPRESSION: 1. Technically limited evaluation of the abdominal structures due to body habi tus and GI content. 2. Hepatic steatosis. No enlargement or hepatic duct dilatation. 3. Diffuse gallbladder wall thickening is probably due to hepatocellular disea se. Limited evaluation of the gallbladder. Small stones cannot be excluded.
[2022-03-29] VITALS (8 sets, daily range): BP systolic 107–131; BP diastolic 70–86; PULSE 63–90; RESP 14–17; TEMP 36.4–36.8; O2SAT 94–98
[2022-03-29] MEDS: sodium chloride 0.9% 1,000 ML 75 ML IV (01:49)
[2022-03-29 05:49] LABS: Basophils # 0.1 10^3/uL (0.0-0.1); Basophils % 0.8 %; Eosinophils # 0.2 10^3/uL (0.0-0.8); Eosinophils % 2.5 %; Hematocrit 42.2 % (37.0-47.0); Hemoglobin 12.6 g/dL (11.5-15.3); Lymphocytes # 3.5 10^3/uL (0.8-4.8); Lymphocytes % 39.2 %; Mean Corpuscular HGB Conc 29.9 g/dL (30.0-36.0); Mean Platelet Volume 10.5 fL (7.4-10.4); Monocytes # 0.7 10^3/uL (0.2-0.9); Monocytes % 8.4 %; Neutrophils # 4.29 10^3/uL (1.8-7.7); Neutrophils % 48.9 %; Nucleated Red Blood Cells % 0 %; Platelet Count 220 10^3/cmm (130-400); Red Blood Count 4.35 10^6/uL (4.1-5.3); Red Cell Distribution Width 12.6 % (12.1-15.1); White Blood Count 8.8 10^3/uL (4.0-10.0)
[2022-03-29 07:11] LABS: Alanine Aminotransferase 18 U/L (0-33); Albumin Level 3.7 g/dL (3.5-5.2); Alkaline Phosphatase 114 U/L (35-105); Anion Gap 14.3 (5-19); Aspartate Amino Transferase 14 U/L (0-32); Blood Urea Nitrogen 14 mg/dL (6-20); Calcium 8.9 mg/dL (8.5-10.5); Carbon Dioxide 21 mmol/L (22-29); Chloride 109 mmol/L (98-107); Globulin 2.7 g/dL (1.3-4.6); Glucose 102 mg/dL (65-115); Osmolality Calculated 291 mOsm/kg (285-295); Potassium 4.3 mmol/L (3.5-5.1); Sodium 140 mmol/L (136-145); Total Bilirubin 0.2 mg/dL (0.15-1.2); Total Protein 6.4 g/dL (6.6-8.7)
[2022-03-29] MEDS: pantoprazole DR 40 mg Tablet PO (10:23)
--- NOTE | 2022-03-29 12:51 | P.PN_ITS ---
Subjective Subjective: awaiting stress test thursday. no acute events overnight. continues with intermittent chest tightness but did not have any overnight. did not experience any blackouts or dizziness since yesterday Vitals/I&O/Wt Last Vital Signs Temp 97.9 F 03/29/22 11:17 Pulse 74 03/29/22 11:17 Resp 15 03/29/22 11:17 BP 130/86 03/29/22 11:17 Pulse Ox 95 03/29/22 11:17 O2 Del Method 03/29/22 11:17 03/28/22 03/29/22 03/29/22 22:59 06:59 14:59 Intake Total 952.5 / 2.5 120 / 120 Balance 952.5 / 2021.5 120 / 120 Weight last 48 hrs Weight 79.379 kg Physical Exam Const: COMMON NORMALS: patient oriented x3 HENMT: COMMON NORMALS: normocephalic and atraumatic HEAD & SCALP: normocephalic and atraumatic Resp: COMMON NORMALS: clear to auscultation bilaterally EFFORT & INSPECTION: Yes symmetric chest movement AUSCULTATION: clear to auscultation bilaterally Cardio: COMMON NORMALS: regular rate, regular rhythm, S1 normal heart sound present, S2 normal heart sound present, No gallops present (Cardio), No murmurs present (Cardio), No rub (Cardio) and Peripheral pulses 2+ throughout RATE: regular rate RHYTHM: regular rhythm HEART SOUNDS: S1 normal heart sound present and S2 normal heart sound present PERIPHERAL PULSES: Peripheral pulses 2+ throughout GI: COMMON NORMALS: Normal to inspection, nondistended, normoactive bowel sounds present, Soft to palpation, non-tender, No hepatosplenomegaly present and no masses AUSCULTATION: Yes normoactive bowel sounds PALPATION: Yes Soft to palpation and Yes No hepatosplenomegaly present RECTAL EXAM: deferred Extremity: COMMON NORMALS: no clubbing, cyanosis or edema and no pedal edema Neuro: COMMON NORMALS: patient oriented x3 Data : 03/29/22 05:20 03/29/22 06:14 A&P Assessment and plan (1) Syncope and collapse: (2) Chest pressure: (3) Asthma: Plan 56 year old female with past medical history of asthma came in with chief complaint of What she describes is very vague, but appears to be presyncopal, possibly syncopal episode, according to the patient for the last 1 month or so, she had possibly 3 episodes of transient blackout episodes, lasting for few seconds, with full regain of consciousness, no confusion after regaining consciousness, prior to occurrence of these episodes she does have some chest tightness. Assessment: Syncope/presyncope Possible pseudoseizures/absence seizure Dyspepsia Chest tightness Plan: Follow 2D echo?results pending Carotid Doppler?50% stenosis in carotid. Orthostatic vital sign are negative Abdominal ultrasound was a difficult study. Difficult to visualize gallbladder. Stones cannot be ruled out. There is decreased thickening however. I will order HIDA scan. TSH 1.40 Prolactin 8.97 B12 378 Folic acid 13.3 Lipid panel complete. Cholesterol 149, LDL 90, HDL 37 HbA1c 5.5 proBNP 33 I agree with admitting physician. Patient will need event monitor at discharge. In the meantime we will continue to monitor on telemetry. I will order stress test for Thursday ? We will order HIDA scan Possible EEG as outpatient. Discussed all of the above with the patient. All questions answered. If patient has chest tightness again will obtain EKG and check troponins. I nitial troponin series negative. CODE STATUS: Full code DVT prophylaxis: On Lovenox Attestations Medical Necessity Statement*: stress test thursday. continue to monitor on telemetry during hospital stay Coding Level of Care Code Acute Civil Rights Representative for [facility] Diagnoses Syncope and collapse R55 Chest pressure R07.89 Asthma J45.909
--- NOTE | 2022-03-29 13:14 | P.PN_ITS ---
Subjective Subjective: Patient is stable. Still has on and off chest discomfort. She has decided to complete work-up in the hospital during this admission. Vitals/I&O/Wt Last Vital Signs Temp 97.9 F 03/29/22 11:17 Pulse 74 03/29/22 11:17 Resp 15 03/29/22 11:17 BP 130/86 03/29/22 11:17 Pulse Ox 95 03/29/22 11:17 O2 Del Method 03/29/22 11:17 03/28/22 03/29/22 03/29/22 22:59 06:59 14:59 Intake Total 952.5 / 2.5 120 / 120 Balance 952.5 / 2021.5 120 / 120 Weight last 48 hrs Weight 175 lb Physical Exam Narrative: GENERAL: Patient is alert, awake and oriented x3. [] NECK: No jugular vein distension. [] HEENT: No cyanosis. No icterus. No pallor. [] HEART: Regular S1 and S2. No murmur, rub or gallop. [] LUNGS: Clear to auscultate bilaterally. [] CENTRAL NERVOUS SYSTEM: Grossly nonfocal. [] EXTREMITIES: Lower extremities with no edema bilaterally. Pulses palpable in the lower extremities, both dorsalis pedis and posterior tibial. [] Data : 03/30/22 04:50 03/30/22 04:50 A&P Assessment and plan (1) Syncope and collapse: (2) Chest pressure: (3) Asthma: Plan Patient's symptoms are atypical. No evidence of heart block on telemetry. No significant arrhythmias. Will recommend continuing telemetry for now. Stress test ordered. Planned for Thursday Thank you for involving us with care of this patient. If she decides to stay inpatient for further work-up, we will continue to follow. Please call with questions. Attestations 2 Medical Necessity Statement*: Care expected to cross 2 midnights. Coding Level of Care Code Acute Engineering Laboratory Technician for [facility] Diagnoses Syncope and collapse R55 Chest pressure R07.89 Asthma J45.909
[2022-03-30] VITALS (8 sets, daily range): BP systolic 104–130; BP diastolic 70–84; PULSE 60–90; RESP 16–18; TEMP 36.4–36.8; O2SAT 96–98
[2022-03-30] MEDS: enoxaparin 40 mg/0.4 mL Syringe SUBCUT ×2 (00:59→22:57)
[2022-03-30 05:24] LABS: Basophils # 0.1 10^3/uL (0.0-0.1); Basophils % 0.6 %; Eosinophils # 0.3 10^3/uL (0.0-0.8); Eosinophils % 2.7 %; Hematocrit 40.6 % (37.0-47.0); Hemoglobin 12.5 g/dL (11.5-15.3); Lymphocytes # 3.7 10^3/uL (0.8-4.8); Lymphocytes % 35.7 %; Mean Corpuscular HGB Conc 30.8 g/dL (30.0-36.0); Mean Corpuscular Hemoglobin 28.1 pg (28.0-34.0); Mean Corpuscular Volume 91.2 fl (81-99); Mean Platelet Volume 9.9 fL (7.4-10.4); Monocytes # 0.8 10^3/uL (0.2-0.9); Monocytes % 7.3 %; Neutrophils # 5.51 10^3/uL (1.8-7.7); Neutrophils % 53.3 %; Nucleated Red Blood Cells % 0 %; Platelet Count 314 10^3/cmm (130-400); Red Blood Count 4.45 10^6/uL (4.1-5.3); Red Cell Distribution Width 12.5 % (12.1-15.1); White Blood Count 10.4 10^3/uL (4.0-10.0)
[2022-03-30 06:03] LABS: Alanine Aminotransferase 19 U/L (0-33); Albumin Level 3.7 g/dL (3.5-5.2); Alkaline Phosphatase 116 U/L (35-105); Anion Gap 12.3 (5-19); Aspartate Amino Transferase 14 U/L (0-32); Blood Urea Nitrogen 12 mg/dL (6-20); Carbon Dioxide 24 mmol/L (22-29); Chloride 108 mmol/L (98-107); Glucose 105 mg/dL (65-115); Osmolality Calculated 290 mOsm/kg (285-295); Potassium 4.3 mmol/L (3.5-5.1); Sodium 140 mmol/L (136-145); Total Bilirubin 0.2 mg/dL (0.15-1.2); Total Protein 6.7 g/dL (6.6-8.7)
[2022-03-30] MEDS: pantoprazole DR 40 mg Tablet PO (08:18)
--- NOTE | 2022-03-30 09:02 | PM.PN ---
Subjective Subjective: awaiting stress test thursday. no acute events overnight. continues with intermittent chest tightness Vitals/I&O/Wt Last Vital Signs Temp 97.6 F 03/30/22 08:00 Pulse 60 03/30/22 08:00 Resp 18 03/30/22 08:00 BP 116/76 03/30/22 08:00 Pulse Ox 98 03/30/22 08:00 O2 Del Method 03/30/22 08:00 03/29/22 03/30/22 03/30/22 22:59 06:59 14:59 Intake Total 240 / 1310 Balance 240 / 1310 Physical Exam Const: COMMON NORMALS: patient oriented x3 HENMT: COMMON NORMALS: normocephalic and atraumatic HEAD & SCALP: normocephalic and atraumatic Resp: COMMON NORMALS: clear to auscultation bilaterally EFFORT & INSPECTION: Yes symmetric chest movement AUSCULTATION: clear to auscultation bilaterally Cardio: COMMON NORMALS: regular rate, regular rhythm, S1 normal heart sound present, S2 normal heart sound present, No gallops present (Cardio), No murmurs present (Cardio) and No rub (Cardio) RATE: regular rate RHYTHM: regular rhythm HEART SOUNDS: S1 normal heart sound present and S2 normal heart sound present GI: COMMON NORMALS: Normal to inspection, nondistended, normoactive bowel sounds present, Soft to palpation, non-tender and no masses AUSCULTATION: Yes normoactive bowel sounds PALPATION: Yes Soft to palpation RECTAL EXAM: deferred Extremity: COMMON NORMALS: no clubbing, cyanosis or edema and no pedal edema Neuro: COMMON NORMALS: patient oriented x3 Data : 03/30/22 04:50 03/30/22 04:50 A&P Assessment and plan (1) Syncope and collapse: (2) Chest pressure: (3) Asthma: Plan 56 year old female with past medical history of asthma came in with chief complaint of What she describes is very vague, but appears to be presyncopal, possibly syncopal episode, according to the patient for the last 1 month or so, she had possibly 3 episodes of transient blackout episodes, lasting for few seconds, with full regain of consciousness, no confusion after regaining consciousness, prior to occurrence of these episodes she does have some chest tightness. Assessment: Syncope/presyncope Possible pseudoseizures/absence seizure Dyspepsia Chest tightness Plan: Follow 2D echo?results pending Carotid Doppler?50% stenosis in carotid. Orthostatic vital sign are negative Abdominal ultrasound was a difficult study. Difficult to visualize gallbladder. Stones cannot be ruled out. There is decreased thickening however. I will order HIDA scan. TSH 1.40 Prolactin 8.97 B12 378 Folic acid 13.3 Lipid panel complete. Cholesterol 149, LDL 90, HDL 37 HbA1c 5.5 proBNP 33 Stress test thursday Check CT Abdomen Possible EEG as outpatient. Discussed all of the above with the patient. All questions answered. If patient has chest tightness again will obtain EKG and check troponins. Initial troponin series negative. CODE STATUS: Full code DVT prophylaxis: On Lovenox Attestations Medical Necessity Statement*: stress test thursday morning. continue to monitor on telemetry during hospital stay Coding Level of Care Code Acute Irrigator Sprinkling System for [facility] Diagnoses Syncope and collapse R55 Chest pressure R07.89 Asthma J45.909
--- NOTE | 2022-03-30 20:50 | PM.PN ---
Subjective Subjective: All stable. Still has on and off chest discomfort. Vitals/I&O/Wt Last Vital Signs Temp 98.2 F 03/30/22 20:00 Pulse 74 03/30/22 20:00 Resp 17 03/30/22 20:00 BP 104/70 03/30/22 20:00 Pulse Ox 97 03/30/22 20:00 O2 Del Method 03/30/22 15:57 03/30/22 03/30/22 03/30/22 06:59 14:59 22:59 Intake Total 480 / 480 Balance 480 / 480 Physical Exam Narrative: GENERAL: Patient is alert, awake and oriented x3. [] NECK: No jugular vein distension. [] HEENT: No cyanosis. No icterus. No pallor. [] HEART: Regular S1 and S2. No murmur, rub or gallop. [] LUNGS: Clear to auscultate bilaterally. [] CENTRAL NERVOUS SYSTEM: Grossly nonfocal. [] EXTREMITIES: Lower extremities with no edema bilaterally. Pulses palpable in the lower extremities, both dorsalis pedis and posterior tibial. [] Data : 03/30/22 04:50 03/30/22 04:50 A&P Assessment and plan (1) Syncope and collapse: (2) Chest pressure: (3) Asthma: Plan No significant arrhythmia reported. Plan for nuclear stress test tomorrow. Will need event monitor at time of discharge if stress test is normal. Thank you for involving us with care of this patient. If she decides to stay inpatient for further work-up, we will continue to follow. Please call with questions. Attestations Medical Necessity Statement*: Care expected to cross 2 midnights. Coding Level of Care Code Acute Solar Applications Development Engineer for [facility] Diagnoses Syncope and collapse R55 Chest pressure R07.89 Asthma J45.909
[2022-03-31 04:00] VITALS: BP 131/84; PULSE 66; RESP 16; TEMP 36.6; O2SAT 97
[2022-03-31 06:00] VITALS: PULSE 73
--- NOTE | 2022-03-31 07:12 | ECG_ITS ---
[facility] Test Date: 2022-03-31 Pat Name: Janeth Gonzalez Department: Room: 259 Gender: Female Brusher Hand: : 1965 Requested By: Whitney Duffy Order Number: [id number] Armando Diaz MD: Manuel Cerna M.D. Interpretive Statements NAME OF STUDY: EXERCISE SESTAMIBI STRESS TEST INDICATION: [syncope, ] EXERCISE DATA: The patient was exercised by Charan protocol. Baseline heart rate was 90 beats per minute. Baseline blood pressure was 135/91 millimeters of mercury. Target heart rate was 138 beats per minute. Maximum heart rate achieved was 174, which was 126% of the target heart rate. Maximum blood pressure was 192/81 millimeters of mercury. Total exercise time was 7 minutes 22 seconds. Maximum METs achieved was 10.2. The reason for ending the test was completion of the protocol. The patient complained of 7 minutes 22 seconds during the stress test, which then resolved at the end of the test. ELECTROCARDIOGRAM: BASELINE: Showed sinus rhythm, normal axis, no significant ST-T changes at the baseline noted. EXERCISE: At the peak exercise level, No significant ST-T changes suggestive of ischemia noted. RECOVERY: During the recovery period, heart rate dropped appropriately. No significant ST-T changes in the recovery suggestive of ischemia noted. CONCLUSION: 1. Exercise capacity good. 2. Heart rate response was appropriate. 3. Blood pressure response was appropriate. 4. Symptoms not suggestive of ischemia. 5. Electrocardiogram portion of the stress test was not suggestive of ischemia. 6. Nuclear scan will be documented separately. Electronically Signed On 04-07-2022 10:06:12 CDT by Manuel Crena M.D. [id number]
[2022-03-31 08:39] VITALS: BP 127/85; PULSE 96
--- NOTE | 2022-03-31 09:44 | PM.PN ---
Subjective Subjective: Patient doing well. Denies chest pain Vitals/I&O/Wt Last Vital Signs Temp 97.9 F 03/31/22 04:00 Pulse 96 03/31/22 08:39 Resp 16 03/31/22 04:00 BP 127/85 03/31/22 08:39 Pulse Ox 97 03/31/22 04:00 O2 Del Method 03/30/22 15:57 03/30/22 03/31/22 03/31/22 22:59 06:59 14:59 Intake Total 240 / 720 Balance 240 / 720 Physical Exam Narrative: GENERAL: Patient is alert, awake and oriented x3. [] NECK: No jugular vein distension. [] HEENT: No cyanosis. No icterus. No pallor. [] HEART: Regular S1 and S2. No murmur, rub or gallop. [] LUNGS: Clear to auscultate bilaterally. [] CENTRAL NERVOUS SYSTEM: Grossly nonfocal. [] EXTREMITIES: Lower extremities with no edema bilaterally. Pulses palpable in the lower extremities, both dorsalis pedis and posterior tibial. [] Data : 03/30/22 04:50 03/30/22 04:50 A&P Assessment and plan (1) Syncope and collapse: (2) Chest pressure: (3) Asthma: Plan Nuclear stress test does not reveal ischemia. Event monitor at time of discharge. On tele there was irregularity of rhythm but had significant artifact Thank you for involving us with care of this patient. If she decides to stay inpatient for further work-up, we will continue to follow. Please call with questions. Attestations Medical Necessity Statement*: Care expected to cross 2 midnights. Coding Level of Care Code Acute Phlebotomy Support Tech for [facility] Diagnoses Syncope and collapse R55 Chest pressure R07.89 Asthma J45.909
[2022-03-31] MEDS: pantoprazole DR 40 mg Tablet PO (11:42)
[2022-03-31] MEDS: aspirin 81 mg EC Tablet PO (11:42)
[2022-03-31 12:00] VITALS: BP 128/85; PULSE 76; RESP 16; TEMP 36.6; O2SAT 96
--- NOTE | 2022-03-31 14:01 | P.DS_ITS ---
Discharge Providers Date of Admission: 03/28/22 14:10 Date of Discharge: March 31, 2022 Attending Provider at Admission: Brennan Bass MD Attending Provider at Discharge: Sanjiv Vega MD Consults: Cardiology: Dr. Cerna Primary Care Provider: DOROTA Morrell Diagnoses at Discharge Discharge Diagnosis (1) Syncope and collapse: Status: Acute (2) Chest pressure: Status: Acute (3) Asthma: Status: Acute Reason for Visit Reason for Visit: Possible Clogged Atery Hospital Course Hospital Course Janeth Gonzalez is a 56 year old female with past medical history of asthma who presented to the hospital with the symptoms of presyncope.? According to patient in the last 1 month she had 3 episodes of blacking out.? On 1 occasion she ate and right after that felt a chest discomfort in the chest going to her face and she lost consciousness for a few seconds.? It was a witnessed event by the family.? There was no seizure-like activity at that time with it.? She again had episode while she was walking and felt wobbly however did not pass out.? Has occasional chest discomfort after eating.? Nonexertional.? Echo shows systolic function is normal.? EKG shows normal sinus rhythm with no arrhythmias.? Telemetry is showing brief event of irregular rhythm.? However has significant baseline artifact.? Carotid duplex does not show significant abnormality.? Troponins did not trend up. Cardiology was consulted. Patient remained on telemetry during hospitalization. To rule out ischemic event she underwent cardiac Lexiscan stress test on 03/31 which was negative for any acute ischemia. During hospitalization she is complaining of abdominal pain for which ultrasound abdomen was done which is consistent with gallbladder thickening without cholecystitis but consistent with a possible cholelithiasis to could not be confirmed. She is advised to have a CT abdomen pelvis done as an outpatient as initial work-up and follow-up with her primary care provider within next 1 week. She has been discharged hemodynamically stable condition on aspirin and statins. She is advised to have an event monitor placed for further evaluation and management of her arrhythmia if needed. She has been asked to avoid driving or working around heavy machinery till the time she has results of the event monitor. Physical Exam Const: COMMON NORMALS: patient oriented x3 HENMT: COMMON NORMALS: normocephalic and atraumatic HEAD & SCALP: normocephalic and atraumatic Resp: COMMON NORMALS: clear to auscultation bilaterally EFFORT & INSPECTION: Yes symmetric chest movement AUSCULTATION: clear to auscultation bilaterally Cardio: COMMON NORMALS: regular rate, regular rhythm, S1 normal heart sound present, S2 normal heart sound present, No gallops present (Cardio), No murmurs present (Cardio), No rub (Cardio) and Peripheral pulses 2+ throughout RATE: regular rate RHYTHM: regular rhythm HEART SOUNDS: S1 normal heart sound present and S2 normal heart sound present PERIPHERAL PULSES: Peripheral pulses 2+ throughout GI: COMMON NORMALS: Normal to inspection, nondistended, normoactive bowel sounds present, Soft to palpation, non-tender, No hepatosplenomegaly present and no masses AUSCULTATION: Yes normoactive bowel sounds PALPATION: Yes Soft to palpation and Yes No hepatosplenomegaly present RECTAL EXAM: deferred Extremity: COMMON NORMALS: no clubbing, cyanosis or edema and no pedal edema Neuro: COMMON NORMALS: patient oriented x3 Discharge Data Studies Completed and Pending Completed Studies During Hospitalization Category Date Time Status CT head wo con* [id number] Stat Cat Scan 03/27/22 21:02 Completed Sestamibi Stress Test Request Routine Exams 03/31/22 07:12 Draft XR chest 1V portable [id number] Stat Exams 03/27/22 20:45 Completed NM adonis perf SPECT r/s* [id number] Routine Nuc Med 03/31/22 14:14 Completed CV carotid duplex BI* [id number] Routine Ultrasound 03/28/22 23:49 Completed CV. echo complete* [id number] Routine Ultrasound 03/28/22 23:49 Completed US abdomen complete* [id number] Routine Ultrasound 03/28/22 23:50 Completed Pending at discharge Category Date Time Status Sestamibi Stress Test Request Routine Exams 03/28/22 14:14 Stop Req NM hepatobiliary w phar* [id number] Routine Nuc Med 03/31/22 14:12 Ordered Radiology Impressions Chest X-Ray 03/27/22 20:45 IMPRESSION: 1. No definite CHF or pneumonia. 2. Other findings discussed above. Head CT 03/27/22 21:02 IMPRESSION: 1. No acute intracranial hemorrhage or mass effect. 2. No definite acute infarct by CT, see above. 3. Other findings discussed above. Abdomen Ultrasound 03/28/22 23:50 IMPRESSION: 1. Technically limited evaluation of the abdominal structures due to body habitus and GI content. 2. Hepatic steatosis. No enlargement or hepatic duct dilatation. 3. Diffuse gallbladder wall thickening is probably due to hepatocellular disease. Limited evaluation of the gallbladder. Small stones cannot be excluded. Echocardiogram: CONCLUSIONS ?Normal left ventricular size and systolic function, EF 61 %. No?regional wall motion abnormalities. ?Mild tricuspid valve regurgitation. ?Estimated pulmonary artery peak systolic pressure 28 mmHg ?There is no pericardial effusion. ?There are no intracardiac masses. ?No similar previous studies are available for comparison ?Dr Delfin Bermudez MD [facility] ?(Electronically Signed) ?Final Date:? ? ? 28 March 2022 ? 18:14 Laboratory Results WBC 10.4 10^3/uL (4.0-10.0) H 03/30/22 04:50 RBC 4.45 10^6/uL (4.1-5.3) 03/30/22 04:50 Hgb 12.5 g/dL (11.5-15.3) 03/30/22 04:50 Hct 40.6 % (37.0-47.0) 03/30/22 04:50 MCV 91.2 fl (81-99) D 03/30/22 04:50 MCH 28.1 pg (28.0-34.0) 03/30/22 04:50 MCHC 30.8 g/dL (30.0-36.0) 03/30/22 04:50 RDW 12.5 % (12.1-15.1) 03/30/22 04:50 Plt Count 314 10^3/cmm (130-400) D 03/30/22 04:50 MPV 9.9 fL (7.4-10.4) 03/30/22 04:50 Neut % (Auto) 53.3 % 03/30/22 04:50 Lymph % (Auto) 35.7 % 03/30/22 04:50 [place] % (Auto) 7.3 % 03/30/22 04:50 Eos % (Auto) 2.7 % 03/30/22 04:50 Baso % (Auto) 0.6 % 03/30/22 04:50 Neut # (Auto) 5.51 10^3/uL (1.8-7.7) 03/30/22 04:50 Lymph # (Auto) 3.7 10^3/uL (0.8-4.8) 03/30/22 04:50 [place] # (Auto) 0.8 10^3/uL (0.2-0.9) 03/30/22 04:50 Eos # (Auto) 0.3 10^3/uL (0.0-0.8) 03/30/22 04:50 Baso # (Auto) 0.1 10^3/uL (0.0-0.1) 03/30/22 04:50 Nucleated RBC % (auto) 0 % 03/30/22 04:50 Nucleated RBCs # 0.0 /100WBC 03/30/22 04:50 PT 13.90 SECONDS (12.1-14.9) 03/28/22 02:53 INR 1.04 (0.8-1.2) 03/28/22 02:53 APTT 34.5 SECONDS (23.9-36.7) 03/28/22 02:53 Sodium 140 mmol/L (136-145) 03/30/22 04:50 Potassium 4.3 mmol/L (3.5-5.1) 03/30/22 04:50 Chloride 108 mmol/L (98-107) H 03/30/22 04:50 Carbon Dioxide 24 mmol/L (22-29) 03/30/22 04:50 Anion Gap 12.3 (5-19) 03/30/22 04:50 BUN 12 mg/dL (6-20) 03/30/22 04:50 Creatinine 0.6 mg/dL (0.5-0.9) 03/30/22 04:50 GFR Calculation 103.0 mL/min (90-130) 03/30/22 04:50 Glucose 105 mg/dL (65-115) 03/30/22 04:50 Estimat Average Glucose 111 03/28/22 02:53 Hemoglobin A1c 5.5 % (4.0-6.0) 03/28/22 02:53 Calculated Osmolality 290 mOsm/kg (285-295) 03/30/22 04:50 Calcium 9.0 mg/dL (8.5-10.5) 03/30/22 04:50 Phosphorus 3.4 mg/dL (2.5-4.5) 03/28/22 02:53 Magnesium Cancelled 03/29/22 05:20 Total Bilirubin 0.2 mg/dL (0.15-1.2) 03/30/22 04:50 AST 14 U/L (0-32) 03/30/22 04:50 ALT 19 U/L (0-33) 03/30/22 04:50 Alkaline Phosphatase 116 U/L (35-105) H 03/30/22 04:50 Troponin T Baseline 6 ng/L (0-10) 03/27/22 20:56 Troponin T 120 Minute 6.00 ng/L (0-10) 03/27/22 23:05 Delta Troponin T 0 ABS# (0-10) 03/27/22 23:05 Troponin T Hi Sens 6Hr 6.00 ng/L (0-10) 03/28/22 02:53 Troponin T Hi Sens 6Hr Delta 0 ng/L (0-12) 03/28/22 02:53 NT-Pro-B Natriuret Pep 33 pg/mL (0-125) 03/28/22 02:53 Total Protein 6.7 g/dL (6.6-8.7) 03/30/22 04:50 Albumin 3.7 g/dL (3.5-5.2) 03/30/22 04:50 Globulin 3.0 g/dL (1.3-4.6) 03/30/22 04:50 Triglycerides 111 mg/dL (0-150) 03/28/22 02:53 Cholesterol 149 mg/dL (0-200) 03/28/22 02:53 LDL Cholesterol, Calc 90 mg/dL (50-129) 03/28/22 02:53 HDL Cholesterol 37 mg/dL (60-100) L 03/28/22 02:53 LDL/HDL Ratio 2.43 RATIO (0.00-3.22) 03/28/22 02:53 Cholesterol/HDL Ratio 4.03 mg/dL (0.0-4.40) 03/28/22 02:53 Vitamin B12 378 pg/mL (232-1245) 03/28/22 02:53 Folate 13.3 ng/mL (4.8-37.3) 03/28/22 02:53 TSH 1.40 uIU/mL (0.27-4.20) 03/28/22 02:53 Prolactin 8.97 ng/mL (4.8-23.3) 03/28/22 02:53 Vitals Last Vital Signs Temp 97.9 F 03/31/22 12:00 Pulse 76 03/31/22 12:00 Resp 16 03/31/22 12:00 BP 128/85 03/31/22 12:00 Pulse Ox 96 03/31/22 12:00 O2 Del Method 03/31/22 12:00 Discharge Plan Discharge Patient Disposition: Home Condition: Stable Prescriptions: New aspirin 81 mg Tablet,Delayed Release (Dr/Ec) 81 mg PO DAILY Qty: 30 0RF pantoprazole 40 mg Tablet,Delayed Release (Dr/Ec) 40 mg PO DAILY Qty: 30 0RF atorvastatin 40 mg Tablet 20 mg PO BEDTIME Qty: 30 0RF Continued cholecalciferol (vitamin D3) 50 mcg (2,000 unit) tablet 50 mcg PO DAILY Qty: 30 0RF fluticasone propionate [Flonase Allergy Relief] 50 mcg/actuation spray,suspension 2 spray intranasal DAILY Qty: 16 0RF Rx Instructions: administer into each nostril montelukast [Singulair] 10 mg tablet 10 mg PO DAILY Qty: 30 5RF Vitamin C 500 mg Capsule, Extended Release 500 mg PO DAILY Women's 50 Plus Multivitamin 400 mcg-500 mg calcium-20 mcg Tablet 1 tab PO DAILY Discharge Orders: Discharge Order (Routine); Ordered 03/31/22 Ordered By: Sanjiv Vega Other Ambulatory Orders: CT abdomen pelvis wo con [id number] (Routine) Timeframe: 1 Week Facility: [facility] - Location: Radiology [place] [facility] Ordered By: Sanjiv Vega [facility]/Event Monitor 21 Days (Routine) Timeframe: 1 Day Facility: [facility] - Location: Radiology Ordered By: Sanjiv Vega Referrals: Colleen Lassiter, BEHAVIORAL SPECIALIST-C [Primary Care Provider] - Discharge Diet: Cardiac Discharge Activity: Resume usual activity and Increase activity as tolerated Patient Instructions: Opioid Safety Activity Restrictions/Additional Instructions: Please follow-up with a primary care provider within next 1 week. Event monitor will be scheduled for you. After 3 weeks of event monitor please follow-up with cardiology/[facility]. Take aspirin and statin daily going forward. Till you have results of event monitor please try to avoid driving or working around heavy, sharp machinery. Patient's Health Concerns: Syncope and presyncope Possible arrhythmia Cholelithiasis Plan of Treatment: Event monitor as an outpatient. CT abdomen pelvis as an outpatient and depending on the results follow-up with surgeon Discharge Attestations Time Spent in Discharge Care*: greater than 30 min Specific Discharge Activities: educating patient, educating and/or supporting family/caregiver, discussing with pcp/other providers, discussing with watch case polisher/social workers/dc planners, documenting/other paperwork and evaluating patient/reviewing data Status at Discharge: Cognitive status at discharge: cognitively intact , Behavioral status at discharge: cooperative , Functional status at discharge: independent ambulation , Overall status at discharge: patient is back to baseline Quality Metrics Clinical Quality Measures [ No reported AMI, CVA or VTE this stay] Coding Level of Care Code Acute Chg FW DC note Diagnoses Syncope and collapse R55 Chest pressure R07.89 Asthma J45.909
--- NOTE | 2022-03-31 14:14 | NMCV_ITS ---
NM adonis perf SPECT r/s* [id number] Janeth Gonzalez Age: 56 Gender: F : 1965 Exam Date: 03/31/2022 07:45 Ordering Phys: Whitney Duffy MD Technologist: TUSHAR Lambert Exam Location: [facility] Indications: CHEST PAIN STRESS TEST Please see separate stress test report in [facility] for full findings IMAGE PROTOCOL Rest/Stress 1 Exercise Day Radiopharmaceutical Dose (mCi) Administration Site Administered by Rest: Tc-99m 10.9 IV TUSHAR Faust Sestaminabor Stress:Tc-99m 32.8 IV TUSHAR Faust Sestaminabor Rest: 31-Mar-2022 60 Discovery 630 Stress: 31-Mar-2022 15 Discovery 630 Radiopharmaceutical was injected at 100% maximum heart rate. Images obtained in supine and prone position. SPECT RESULTS Technical Quality: Excellent Raw Data Analysis: Normal Image Corrections: No attenuation or motion correction applied Summed Stress Score: 0 Summed Rest Score: 0 Summed Difference Score: 0 PERFUSION FINDINGS SPECT images demonstrate homogeneous tracer distribution throughout the myocardium. FUNCTIONAL RESULTS (calculated via Gated SPECT) Stress Image LV EF (%): 84 Stress EDV (mL):61 TID: 0.64 Stress ESV (mL):10 FUNCTIONAL FINDINGS: There is normal left ventricular systolic function. IMPRESSIONS 1. Normal myocardial perfusion imaging with no evidence of ischemia. 2. LV systolic function is normal Manuel Cerna MD (Electronically Signed) Final Date: 31 March 2022 09:43 S
[2022-03-31 15:57] VITALS: BP 128/85; PULSE 76; RESP 16; TEMP 36.6; O2SAT 96
== END 2022-03-31 15:58 | disposition home or self-care (01) | DRG 312 ==
LOC: ER 21:03 → MEDSURG 22:18
PROVIDERS: Internal Medicine; Admitting Provider Internal Medicine; Emergency Provider Emergency Medicine; PCP Nurse Practitioner; Visit Provider Student in an Organized Health Care Education/Training Program
DX: R55 Syncope and collapse (principal); J45.909 Unspecified asthma, uncomplicated; R10.13 Epigastric pain; R07.89 Other chest pain; K80.20 Calculus of gallbladder without cholecystitis without obstruction
CPT/HCPCS: 36415; 70450; 71045; 76700; 78452; 80048; 80053; 80061; 82607; 82746; 83036; 83735; 83880; 84100; 84146; 84443; 84484; 85025; 85610; 85730; 93005; 93017; 93306; 93880; 96360; 96372; 99285; A9500; G0378; J1650; J7030

== ENCOUNTER 2022-05-09 06:24 | Outpatient (CLI) | payer MEDICAID, SELFPAY ==
--- NOTE | 2022-05-09 08:00 | NM_ITS ---
WS: [id number] NUCLEAR MEDICINE HIDA SCAN WITH GALLBLADDER EJECTION FRACTION HISTORY: R10.11 - Right upper quadrant pain COMPARISON: Abdomen ultrasound 03/28/2022 TECHNIQUE: The patient was intravenously injected with 5.4 mCi of TC99m Mebrofenin. Immediate imaging over the right upper quadrant was followed by 5 minute image and additional images for a total of 60 minutes. Normal uptake of radiotracer throughout the liver. Activity identified in the gallbladder at 15 minutes and well distended by 60 minutes. Activity in the proximal small bowel was seen by 40 minutes. Good washout of the radiotracer from the liver by 60 minutes. The patient then drank 8 ounces of Ensure Plus. Ejection fraction at 60 minutes was 88%. Normal GB ej ection fraction is 35-75%. Post fatty meal symptoms: None. NM/NM hepatobiliary w phar* [id number] IMPRESSION: 1. Normal HIDA scan. 2. Normal gallbladder ejection fraction.
== END 2022-05-09 06:25 | disposition home or self-care (01) ==
LOC: RAD 06:26
PROVIDERS: PCP Nurse Practitioner; Visit Provider Nurse Practitioner
DX: R10.11 Right upper quadrant pain (principal); R93.2 Abnormal findings on diagnostic imaging of liver and biliary tract
CPT/HCPCS: 78227; A9537

== ENCOUNTER 2022-05-13 08:41 | Outpatient (CLI) | payer MEDICAID, SELFPAY ==
--- NOTE | 2022-05-13 08:47 | CT_ITS ---
WS: [id number] CT ABDOMEN AND PELVIS NONCONTRAST HISTORY: Cholelithiasis TECHNIQUE: Imaging performed through the abdomen and pelvis. Coronal and sagittal reformats are submi tted. All CT scans at [facility] use at least one of these dose optimization techniques: auto mated exposure control; mA and/or kV adjustment per patient size (includes targeted exams where dose is matched to clinical indication); or iterative reconstruction. DLP: 1268.82 mGy.cm COMPARISON: None available. Lower thorax: Lung bases are clear. Visualized heart is normal. No hiatal hernia. Liver: Normal size liver. No mass or bile duct dilatation. Gallbladder: Normal gallbladder. Normally distended. No adjacent inflammation. Pancreas: Normal size and attenuation. Normal pancreatic duct. No pancreatitis or mass. Spleen: Normal. Adrenal glands: Normal. No mass. Right kidney: Normal size kidney with no mass or hydronephrosis. Left kidney: Normal size kidney with no mass or hydronephrosis. Aorta: Mild atherosclerosis abdominal aorta with no aneurysm. No free fluid, intraperitoneal air or significant lymphadenopathy. GI tract: Normal appendix. No GI tract obstruction or diverticulosis. Abdominal wall: Negative. No hernia. Pelvis: Normal size uterus. Exophytic mass with partial calcification from the LEFT uterine fundus me asures 3.3 x 2.5 cm. No adjacent adenopathy. 9 mm nodule adjacent to the RIGHT lateral uterus is prob ably an area of fat necrosis. Benign in appearance. May be an exophytic nodule from the uterus. Osseous structures: Moderate disc space narrowing at L4-[address]/CT abdomen pelvis wo con [id number] IMPRESSION: 1. Normal appendix. 2. Normal gallbladder by CT. No intraluminal filling defects. 3. No renal obstruction or calcification. 4. Exophytic fibroid measures 3.3 x 2.5 cm.
== END 2022-05-13 08:42 | disposition home or self-care (01) ==
LOC: RAD 08:41
PROVIDERS: PCP Nurse Practitioner; Visit Provider Student in an Organized Health Care Education/Training Program
DX: K80.20 Calculus of gallbladder without cholecystitis without obstruction (principal)
CPT/HCPCS: 74176

== ENCOUNTER 2022-07-21 13:08 | Outpatient (CLI) | payer MEDICAID, SELFPAY ==
--- NOTE | 2022-07-21 13:40 | MM_ITS ---
WS: [id number] DIAGNOSTIC BILATERAL DIGITAL TOMOSYNTHESIS MAMMOGRAPHY WITH CAD. LEFT breast ultrasound, limited HISTORY: 6[facility] COMPARISON: 12/19/2021, 06/13/2021 and 04/02/2021 Technique: CC, MLO and ML views. Spot compression LEFT CC and MLO. Breast composition: There are scattered areas of fibroglandular density. Well-circumscribed mass in the anterior LEFT breast near 2:00 persists measuring 6 mm. No interval change or increase in size. N o additional abnormalities. LEFT breast ultrasound, limited. No change in the hypoechoic ovoid mass measuring 5 x 7 x 2 mm LEFT breast at 2:00, 3 cm the nipple. S table and benign in appearance. MM/[place] [id number] IMPRESSION: BI-RADS: 3-Probably Benign FOLLOW UP: 1 Year Follow-up Favor benign mass in the LEFT breast. Recommend one year additional follow-up t o demonstrate long-term stability. Ultrasound can also be performed in one year along with the bilateral mammogram.
--- NOTE | 2022-07-21 14:38 | US_ITS ---
WS: [id number] DIAGNOSTIC BILATERAL DIGITAL TOMOSYNTHESIS MAMMOGRAPHY WITH CAD. LEFT breast ultrasound, limited HISTORY: 6[facility] COMPARISON: 12/19/2021, 06/13/2021 and 04/02/2021 Technique: CC, MLO and ML views. Spot compression LEFT CC and MLO. Breast composition: There are scattered areas of fibroglandular density. Well-circumscribed mass in the anterior LEFT breast near 2:00 persists measuring 6 mm. No interval change or increase in size. N o additional abnormalities. LEFT breast ultrasound, limited. No change in the hypoechoic ovoid mass measuring 5 x 7 x 2 mm LEFT breast at 2:00, 3 cm the nipple. S table and benign in appearance. US/US breast LT limited* [id number] IMPRESSION: BI-RADS: 3-Probably Benign FOLLOW UP: 1 Year Follow-up Favor benign mass in the LEFT breast. Recommend one year additional follow-up t o demonstrate long-term stability. Ultrasound can also be performed in one year along with the bilateral mammogram.
== END 2022-07-21 13:09 | disposition home or self-care (01) ==
LOC: RAD 13:09
PROVIDERS: PCP Nurse Practitioner; Visit Provider Nurse Practitioner
DX: N63.21 Unspecified lump in the left breast, upper outer quadrant (principal)
CPT/HCPCS: 76642; 77062; G0279

== ENCOUNTER → 2022-08-01 09:25 | Outpatient (BNVA) | payer MEDICAID, SELFPAY | PROVIDERS: PCP Nurse Practitioner; Visit Provider Obstetrics & Gynecology | DX: R10.2 Pelvic and perineal pain (principal) | CPT/HCPCS: 76830 ==

== ENCOUNTER 2022-09-10 11:05 | Observation (INO) | payer MEDICAID, SELFPAY ==
[2022-09-08 10:10] VITALS: BMI 27.9
[2022-09-08 10:25] LABS: Basophils # 0.1 10^3/uL (0.0-0.1); Basophils % 0.9 %; Eosinophils # 0.2 10^3/uL (0.0-0.8); Eosinophils % 2.3 %; Hematocrit 41.4 % (37.0-47.0); Hemoglobin 12.8 g/dL (11.5-15.3); Lymphocytes # 2.7 10^3/uL (0.8-4.8); Lymphocytes % 32.7 %; Mean Corpuscular HGB Conc 30.9 g/dL (30.0-36.0); Mean Corpuscular Hemoglobin 28.1 pg (28.0-34.0); Mean Platelet Volume 9.5 fL (7.4-10.4); Monocytes # 0.8 10^3/uL (0.2-0.9); Monocytes % 10.1 %; Neutrophils # 4.36 10^3/uL (1.8-7.7); Neutrophils % 53.5 %; Nucleated Red Blood Cells % 0 %; Platelet Count 283 10^3/cmm (130-400); Red Blood Count 4.55 10^6/uL (4.1-5.3); Red Cell Distribution Width 12.8 % (12.1-15.1); White Blood Count 8.1 10^3/uL (4.0-10.0)
[2022-09-08 10:36] LABS: Add Urine Culture? No; Add Urine Microscopic? YES; Bilirubin Urine Neg (Negative); Blood Urine 2+ (Negative); Glucose Urine UA Norm (Normal); Ketones Urine Negative (Negative); Leukocyte Esterase Urine Negative (Negative); Nitrate Urine Negative (Negative); Protein Urine Neg (Negative); RBC Urine 0-4 /hpf (0-2); Specific Gravity, Urine 1.015 (1.005-1.030); Squamous Epithelial Cell Urine RARE /hpf (0-5); Urine Appearance Clear (CLEAR); Urine Color Light yellow (Yellow); Urobilinogen Urine Neg (Negative); WBC Urine RARE /hpf (0-5); pH Urine 5 (5-7)
[2022-09-08 10:50] LABS: Alanine Aminotransferase 24 U/L (0-33); Albumin Level 4.2 g/dL (3.5-5.2); Alkaline Phosphatase 143 U/L (35-105); Anion Gap 13.4 (5-19); Aspartate Amino Transferase 19 U/L (0-32); Blood Urea Nitrogen 9 mg/dL (6-20); Calcium 9.2 mg/dL (8.5-10.5); Carbon Dioxide 27 mmol/L (22-29); Chloride 108 mmol/L (98-107); Globulin 3.4 g/dL (1.3-4.6); Glomerular Filtration Rate 102.7 mL/min (90-130); Glucose 107 mg/dL (65-115); Osmolality Calculated 297 mOsm/kg (285-295); Potassium 4.4 mmol/L (3.5-5.1); Sodium 144 mmol/L (136-145); Total Bilirubin 0.2 mg/dL (0.15-1.2); Total Protein 7.6 g/dL (6.6-8.7)
--- NOTE | 2022-09-08 17:14 | ANES.PREANE2 ---
Pre-Anesthetic Assessment Height/Weight: Height 1.73 m Weight 83.461 kg Preop Diagnosis: Uterine fibroid, endometrial polyp Operation Date: 09/10/22 07:50 Proposed Procedures p Total vaginal hysterectomy, bilateral salpingo-oophorectomy 15215,D25.9(Not Applicable) - Maurice Unger MD s Salpingo-Oophorectomy (Vaginal)(Bilateral) - Maurice Unger MD Familial anesthetic complications: none Was Beta Char taken within 24 hours: N/A Was Clonidine taken within 24 hours: N/A Social No alcohol and No tobacco Exam alert, oriented x 3, clear to auscultation bilaterally and regular rate & rhythm Airway Submandibular: within normal limits Cervical ROM: within normal limits Mallampati: Class II Dentition: full Metabolic Hyperlipidemia Anesthetic Plan ASA status: 2 Anesthesia: General Medications/Allergies Home Medications Medication Instructions Recorded Confirmed Last Taken Type cholecalciferol (vitamin D3) 50 50 mcg PO DAILY #30 tabs 06/14/21 09/08/22 09/08/22 Rx mcg (2,000 unit) tablet ascorbic acid (vitamin C) 500 mg 500 mg PO DAILY 03/28/22 09/08/22 09/08/22 History capsule,extended release (Vitamin C) [id number] ac 400 1 tab PO DAILY 03/28/22 09/08/22 09/08/22 History mcg-calcium carb 500 mg-vit K1 20 mcg tablet (Women's 50 Plus Multivitamin) aspirin 81 mg tablet,delayed 81 mg PO DAILY #30 tabs 03/31/22 09/08/22 09/08/22 Rx release atorvastatin 20 mg tablet 20 mg PO BEDTIME #90 tabs 05/07/22 09/08/22 09/08/22 Rx fluticasone propionate 50 2 spray intranasal DAILY #16 grams 05/15/22 09/08/22 09/08/22 Rx mcg/actuation nasal spray,suspension (Flonase Allergy Relief) montelukast 10 mg tablet 10 mg PO DAILY #90 tabs 05/15/22 09/08/22 09/08/22 Rx (Singulair) Allergies Allergy/AdvReac Type Severity Reaction Status Date / Time No Known Allergies Allergy Verified 09/08/22 10:07 [facility] Anesthesia Medical History Asthma Overweight (BMI 25.0-29.9) Surgical History History of tubal ligation Family History Other Diabetes Hypertension Denies family history of Dementia Chronic kidney disease (CKD) Lung disease Cancer Stroke Social History Smoking and tobacco status: never smoked Second hand smoke exposure: No Smoking risk assessment/counseling performed?: Yes Alcohol intake: never Desire information about alcohol rehabilitation?: No Counseling given: No Desire information about substance/drug rehabilitation?: No Counseling given: No Adopted: No Caregiver/support person: No Lives independently: Yes Household members: spouse Housing: House Marital status: Number of children: 2 service: No Current occupational status: unemployed Pets and animals: Yes Current gender identity: Female Data Anesthesia 09/08/22 10:14 09/08/22 10:14 Short CBC 09/08/22 Range/Units 10:14 WBC 8.1 (4.0-10.0) 10^3/uL Hgb 12.8 (11.5-15.3) g/dL Hct 41.4 (37.0-47.0) % MCV 91.0 (81-99) fl Plt Count 283 (130-400) 10^3/cmm Neut % (Auto) 53.5 % Neut # (Auto) 4.36 (1.8-7.7) 10^3/uL BMP 09/08/22 10:14 Sodium 144 Potassium 4.4 Chloride 108 H Carbon Dioxide 27 BUN 9 Creatinine 0.6 Glucose 107 Calcium 9.2 Liver Function 09/08/22 Range/Units 10:14 Total Bilirubin 0.2 (0.15-1.2) mg/dL AST 19 (0-32) U/L ALT 24 (0-33) U/L Alkaline Phosphatase 143 H (35-105) U/L Albumin 4.2 (3.5-5.2) g/dL Urine 09/08/22 Range/Units 10:07 Urine Color Light yellow (Yellow) Urine Appearance Clear (CLEAR) Urine pH 5 (5-7) Ur Specific [place] 1.015 (1.005-1.030) Urine Protein Neg (Negative) Urine Glucose (UA) Norm (Normal) Urine Ketones Negative (Negative) Urine Nitrate Negative (Negative) Urine Bilirubin Neg (Negative) Ur Leukocyte Esterase Negative (Negative) Urine RBC 0-4 H (0-2) /hpf Urine WBC Rare (0-5) /hpf Blood Bank 09/08/22 10:14 Blood Type O Positive Rho(D) Type Positive Antibody Screen TNP Cardiac Studies: Echocardiogram 03/28/22 Sestamibi Stress Test (Cardiology) 03/31/22 Cardiac Event Monitor 04/03/22
[2022-09-10] VITALS (16 sets, daily range): BP systolic 91–166; BP diastolic 59–87; PULSE 50–89; RESP 12–18; TEMP 36.2–37.1; O2SAT 95–100
[2022-09-10] MEDS: scopolamine 1.5 Patch 1 PATCH TRANSDERMA (07:00)
--- NOTE | 2022-09-10 07:00 | W.PM.OPSUD ---
Surgery/Procedure H&P Update DATE OF PROCEDURE: September 10, 2022 DATE H&P PERFORMED: 09/08/22 H&P UPDATE INFORMATION: I have reviewed H&P completed within last 30 days, I have examined patient prior to procedure and Changes to prior documentation as noted here PREOP DIAGNOSIS: Uterine fibroid, endometrial polyp PLANNED PROCEDURE: Operation Date: 09/10/22 07:50 Proposed Procedures p Total vaginal hysterectomy, bilateral salpingo-oophorectomy 28813,D25.9(Not Applicable) - Maurice Unger MD s Salpingo-Oophorectomy (Vaginal)(Bilateral) - Maurice Unger MD
[2022-09-10] MEDS: sodium chloride 0.9% 500 ML IV (07:01)
[2022-09-10] MEDS: sodium chloride 0.9% 1,000 ML 30 ML IV (07:01)
--- NOTE | 2022-09-10 07:13 | ANES.PAUD2 ---
Pre-Anesthetic Update Pre-Anesthetic Assessment: Date of Surgery/Procedure: 09/10/22 Preop Diagnosis: Uterine fibroid, endometrial polyp Proposed Procedure: Operation Date: 09/10/22 07:50 Proposed Procedures p Total vaginal hysterectomy, bilateral salpingo-oophorectomy 69056,D25.9(Not Applicable) - Maurice Unger MD s Salpingo-Oophorectomy (Vaginal)(Bilateral) - Maurice Unger MD Any changes to Pre-Anesthetic Assessment?: No Last Intake: Intake Last Liquid Date 09/09/22 Last Liquid Time 22:00 Last Solid Date 09/09/22 Last Solid Time 21:30 Labs Last 48hrs: Short CBC 09/08/22 Range/Units 10:14 WBC 8.1 (4.0-10.0) 10^3/ uL Hgb 12.8 (11.5-15.3) g/dL Hct 41.4 (37.0-47.0) % MCV 91.0 (81-99) fl Plt Count 283 (130-400) 10^3/c mm Neut % (Auto) 53.5 % Neut # (Auto) 4.36 (1.8-7.7) 10^3/u L BMP 09/08/22 10:14 Sodium 144 Potassium 4.4 Chloride 108 H Carbon Dioxide 27 BUN 9 Creatinine 0.6 Glucose 107 Calcium 9.2 Liver Function 09/08/22 Range/Units 10:14 Total Bilirubin 0.2 (0.15-1.2) mg/dL AST 19 (0-32) U/L ALT 24 (0-33) U/L Alkaline Phosphata se 143 H (35-105) U/L Albumin 4.2 (3.5-5.2) g/dL Urine 09/08/22 Range/Units 10:07 Urine Color Light yellow (Yellow) Urine Appearance Clear (CLEAR) Urine pH 5 (5-7) Ur Specific Gravit y 1.015 (1.005-1.030) Urine Protein Neg (Negative) Urine Glucose (UA) Norm (Normal) Urine Ketones Negative (Negative) Urine Nitrate Negative (Negative) Urine Bilirubin Neg (Negative) Ur Leukocyte Cari ase Negative (Negative) Urine RBC 0-4 H (0-2) /hpf Urine WBC Rare (0-5) /hpf Blood Bank 09/08/22 10:14 Blood Type O Positive Rho(D) Type Positive Antibody Screen TNP Vitals: Temperature 98.7 F 09/10/22 06:53 Temperature Source Temporal Artery S can 09/10/22 06:53 Pulse Rate 76 09/10/22 06:53 Pulse Rhythm 09/10/22 06:53 Pulse Strength 3+ Normal 09/10/22 06:53 Respiratory Rate 18 09/10/22 06:53 Blood Pressure 166/87 09/10/22 06:53 Blood Pressure Fany n 113 09/10/22 06:53 Pulse Oximetry 98 09/10/22 06:53 Oxygen Delivery Me thod 09/10/22 06:53 Exam: Pre-Anes Outpt Exam: alert, oriented x 3, clear to auscultation bilaterally and regular rate & rhythm Cardiac Studies: Echocardiogram 03/28/22 Sestamibi Stress Test (Cardiology) 03/31/22 Cardiac Event Monitor 04/03/22
[2022-09-10] MEDS: ceFOXitin 2,000 MG in sodium chloride 0.9% (plus) 50 ML 100 MG IV (08:33)
[2022-09-10] MEDS: lidocaine-epi 2% 20 mL INJ INJECTION (09:10)
--- NOTE | 2022-09-10 10:30 | P.OP_ITS ---
Operative Report Date of procedure: September 10, 2022 Pre-op diagnosis: Preop Diagnosis Uterine fibroid, endometrial polyp Post-op diagnosis: Same as above Post-op findings: Uterus with fibroid Procedure done: Total vaginal hysterectomy with bilateral salpingo-oophorectomy. Single incision mid urethral sling. Cystoscopy Specimens removed/disposition: Uterus. Left and right fallopian tube. Left and right ovary Surgeon: Maurice Unger MD Estimated blood loss (mL): 100 IV fluids (mL): 600 Urine output (mL): 300 Procedure: After informed consent and risks, benefits, indications and alternatives reviewed with the patient was taken to the operating room. The patient was placed in dorsal lithotomy position prepped, and draped in the usual sterile fashion. The pre-procedure timeout verifying the correct patient, procedure, site and side, could not requirements was performed and acknowledge by the OR team. A Worthy catheter was placed. A Bookwalter vaginal retractor was placed into the vagina in usual manner visualize the cervix. Cervix was grasped with a single tooth tenaculum and circumferentially infiltrated with 2% lidocaine with epinephrine. Then cervix was circumferentially incised with bovie and the bladder was dissected off the pubovesical cervical fascia anteriorly with a sponge stick and Metzenbaum scissors. The anterior peritoneal reflection was identified and the anterior cul-de-sac was entered sharply with Metzenbaum scissors. The same procedure was performed posteriorly and a posterior colpotomy was made through the posterior cul-de-sac space without difficulty and the posterior blade of the Bookwalter vaginal retractor was advanced posteriorly into the cul-de-sac. At this time, the left and right uterosacral ligaments were isolated and ligated with 0 Vicryl. The Enseal device was placed over the uterosacral ligaments on either side and was then used in a serial fashion up through the cardinal ligaments bilaterally cross-clamped, cut, and sealed with the Enseal device. Finally, the uterine arteries were cross-clamped, cut, sealed and ligated with the Enseal device. Hemostasis was assured. The broad ligaments were then serially clamped, sealed and cut with the Enseal device on both sides. Excellent hemostasis was visualized. Both cornua were clamped, sealed and cut with the Enseal device. Then the pedicles were then suture ligated with excellent hemostasis. The uterus was excised and submitted for pathologic evaluation. No other abnormalities were noted in the pelvic cavity. Then the right side Infundibular ligament was identified. The ureter was confirmed along the pelvic side wall and peristalsis was noted. The Enseal device was then used to clamp, sealed and transcepted at middistance, again being sure to be clear of the ureter and the fallopian tube and ovary were removed. The same process was then repeated on the left side. Good hemostasis was assure on both sides. The peritoneum was then closed in a pursestring fashion with 0 Vicryl suture. The vaginal cuff angles were closed with [id number] #0 Vicryl suture on both sides and transfixed with the ipsilateral cardinal and uterosacral ligaments. The remainder of the vaginal cuff was closed with #0 Vicryl in a running locked fashion. At this time, instruments were removed from the vagina at hemostasis assured. Then proceeded to place a single incision mid urethral sling. A vertical midline incision was made beneath the midurethra, nearly 1.5 cm length. Careful submucosal dissection was performed bilaterally up to the interior portion of the inferior pubic ramus. The insertion of adductor longus tendon on the patient?s pubic ramus was identified as reference land natali. Palpated the notch along the internal edge of ischiopubic ramus where the adductor longus tendon and the inferior pubic ramus meet. The Altis single incision sling (SIS) was selected. Then the needle of the SIS inserted aiming at the location of this notch. One of the integrated self-fixating tips place onto the needle by sliding it over the end of the needle. The needle/sling assembly was inserted toward the location of identified reference notch making sure that the flat of the handle is perpendicular to the desired path. The needle was tracked along the posterior surface of the ischiopubic ramus until the midline natali on the mesh is approximately at the midline position under the urethra. The needle was removed and the same was repeated on the contralateral side until the appropriate sling tension under the urethra was achieved ensuring that the mesh lays flat. The needle was removed and vaginal incision was closed in a running interlocking fashion with 2-0 Vicryl. Then the Worthy catheter was removed and cystoscope was inserted. The bladder was filled with sterile water. Complete evaluation of the bladder mucosa was performed noting no lacerations, dimpling, tears, bleeding of the mucosa or muscular layers. Both ureteral orifices were identified. Prompt excretion of u rine from both ureteral orifices was noted. Cystoscope was withdrawn. Worthy catheter was then placed yielding clear harika urine. The patient was taken out of dorsal lithotomy position and awakened from the general anesthesia. The patient tolerated the procedure well and was taken to the PACU recovery room in a stable condition. Sponge, lap, needle and instruments counts were correct x3.
--- NOTE | 2022-09-10 11:08 | PC.NURSE ---
Awake. Airway removed. Responding to questions
[2022-09-10] MEDS: ketorolac 30 mg/mL INJ IVP ×2 (11:38→17:29)
[2022-09-10] MEDS: dextrose 5%-lactated ringers 1,000 ML 125 ML IV ×2 (11:43→19:31)
--- NOTE | 2022-09-10 15:32 | ANE.PACU2 ---
Inpatient post-anesthesia follow up: Airway intact: Yes Vital signs: Temperature 98 F Pulse Rate 59 Respiratory Rate 16 Blood Pressure 117/73 Pulse Oximetry 98 Oxygen Delivery Me thod Room Air Oxygen Flow Rate 8 Fraction of Inspir ed Oxygen Hydration adequate: Yes Nausea and vomiting: No Pain level: 4 Mental status: Baseline
[2022-09-10] MEDS: docusate sodium 100 mg Capsule PO (17:29)
[2022-09-10] MEDS: atorvastatin 40 mg Tablet 20 MG PO (21:29)
[2022-09-10] MEDS: simethicone 80 mg Chew PO (21:29)
[2022-09-10] MEDS: acetaminophen 325 mg Tablet 650 MG PO (21:29)
[2022-09-11 05:01] LABS: Hematocrit 36.1 % (37.0-47.0); Hemoglobin 11.2 g/dL (11.5-15.3); Mean Corpuscular Hemoglobin 28.1 pg (28.0-34.0); Mean Corpuscular Volume 90.7 fl (81-99); Mean Platelet Volume 9.8 fL (7.4-10.4); Platelet Count 276 10^3/cmm (130-400); Red Blood Count 3.98 10^6/uL (4.1-5.3); Red Cell Distribution Width 12.9 % (12.1-15.1); White Blood Count 14.3 10^3/uL (4.0-10.0)
[2022-09-11 05:08] VITALS: BP 112/66; PULSE 65; RESP 16; O2SAT 97
[2022-09-11] MEDS: simethicone 80 mg Chew PO (05:08)
[2022-09-11] MEDS: ketorolac 30 mg/mL INJ IVP (05:08)
--- NOTE | 2022-09-11 08:55 | PM.OBGYDC ---
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 Gonzalez 57-year-old female with a history of pelvic pain and abnormal bleeding diagnosed with a uterine fibroid and endometrial polyp and stress urinary incontinence. Admitted for planned total vaginal hysterectomy with bilateral salpingo-oophorectomy and single incision mid urethral sling. The procedures were performed without complication. Overnight observation was uneventful. She is afebrile and hemodynamically stable postoperative day 1. Tolerating diet well. Ambulating without difficulty. She was counseled regarding weight lifting limitations and pelvic rest for 6 weeks (no sex, no tampons, no vaginal douches). Return to the emergency room if any fever, increased bleeding or pain. Physical Exam Narrative: GA: Alert and oriented ?3. HEENT: WNL. Heart: Regular rate and rhythm. Lungs: Clear to auscultation bilaterally. Abdomen: Bowel sounds present, nontender. SUPERVISOR FUSING ROOM: No bleeding. Extremities: No edema, no cyanosis, no calves pain. Urinary Catheter Management: Worthy: Cath Placed During This Visit: yes, but has since been removed by the nurse Reason for Continuing Indwelling Catheter: Decision to DC Catheter Urinary Catheter Date of Insertion: 09/10/22 Urinary Catheter Time of Insertion: 09:01 Date Urinary Catheter Removed: 09/11/22 Time Urinary Catheter Discontinued: 05:27 History History History 2 Term 2 0 Miscarriages/Ectopic 0 Living Children 2 Discharge Data Studies Completed and Pending Pending at discharge Category Date Time Status Pathology: Surgical [PTH] Routine Pth 09/10/22 10:21 Received Laboratory Results WBC 14.3 10^3/uL (4.0-10.0) H 09/11/22 04:57 RBC 3.98 10^6/uL (4.1-5.3) L 09/11/22 04:57 Hgb 11.2 g/dL (11.5-15.3) L 09/11/22 04:57 Hct 36.1 % (37.0-47.0) L 09/11/22 04:57 MCV 90.7 fl (81-99) 09/11/22 04:57 MCH 28.1 pg (28.0-34.0) 09/11/22 04:57 MCHC 31.0 g/dL (30.0-36.0) 09/11/22 04:57 RDW 12.9 % (12.1-15.1) 09/11/22 04:57 Plt Count 276 10^3/cmm (130-400) 09/11/22 04:57 MPV 9.8 fL (7.4-10.4) 09/11/22 04:57 Neut % (Auto) 53.5 % 09/08/22 10:14 Lymph % (Auto) 32.7 % 09/08/22 10:14 [place]gs % (Auto) 10.1 % 09/08/22 10:14 Eos % (Auto) 2.3 % 09/08/22 10:14 Baso % (Auto) 0.9 % 09/08/22 10:14 Neut # (Auto) 4.36 10^3/uL (1.8-7.7) 09/08/22 10:14 Lymph # (Auto) 2.7 10^3/uL (0.8-4.8) 09/08/22 10:14 [place]gs # (Auto) 0.8 10^3/uL (0.2-0.9) 09/08/22 10:14 Eos # (Auto) 0.2 10^3/uL (0.0-0.8) 09/08/22 10:14 Baso # (Auto) 0.1 10^3/uL (0.0-0.1) 09/08/22 10:14 Nucleated RBC % (auto) 0 % 09/08/22 10:14 Nucleated RBCs # 0.0 /100WBC 09/08/22 10:14 Sodium 144 mmol/L (136-145) 09/08/22 10:14 Potassium 4.4 mmol/L (3.5-5.1) 09/08/22 10:14 Chloride 108 mmol/L (98-107) H 09/08/22 10:14 Carbon Dioxide 27 mmol/L (22-29) 09/08/22 10:14 Anion Gap 13.4 (5-19) 09/08/22 10:14 BUN 9 mg/dL (6-20) 09/08/22 10:14 Creatinine 0.6 mg/dL (0.5-0.9) 09/08/22 10:14 GFR Calculation 102.7 mL/min (90-130) 09/08/22 10:14 Glucose 107 mg/dL (65-115) 09/08/22 10:14 Calculated Osmolality 297 mOsm/kg (285-295) H 09/08/22 10:14 Calcium 9.2 mg/dL (8.5-10.5) 09/08/22 10:14 Total Bilirubin 0.2 mg/dL (0.15-1.2) 09/08/22 10:14 AST 19 U/L (0-32) 09/08/22 10:14 ALT 24 U/L (0-33) 09/08/22 10:14 Alkaline Phosphatase 143 U/L (35-105) H 09/08/22 10:14 Total Protein 7.6 g/dL (6.6-8.7) 09/08/22 10:14 Albumin 4.2 g/dL (3.5-5.2) 09/08/22 10:14 Globulin 3.4 g/dL (1.3-4.6) 09/08/22 10:14 Urine Color Light yellow (Yellow) 09/08/22 10:07 Urine Appearance Clear (CLEAR) 09/08/22 10:07 Urine pH 5 (5-7) 09/08/22 10:07 Ur Specific [place] 1.015 (1.005-1.030) 09/08/22 10:07 Urine Protein Neg (Negative) 09/08/22 10:07 Urine Glucose (UA) Norm (Normal) 09/08/22 10:07 Urine Ketones Negative (Negative) 09/08/22 10:07 Urine Blood 2+ (Negative) H 09/08/22 10:07 Urine Nitrate Negative (Negative) 09/08/22 10:07 Urine Bilirubin Neg (Negative) 09/08/22 10:07 Urine Urobilinogen Neg mg/dL (Negative) 09/08/22 10:07 Ur Leukocyte Esterase Negative (Negative) 09/08/22 10:07 Urine RBC 0-4 /hpf (0-2) H 09/08/22 10:07 Urine WBC Rare /hpf (0-5) 09/08/22 10:07 Ur Squamous Epith Cells Rare /hpf (0-5) 09/08/22 10:07 Amorphous Sediment Not Reportable 09/08/22 10:07 Urine Bacteria None /hpf (NONE) 09/08/22 10:07 Blood Type O Positive 09/08/22 10:14 Rho(D) Type Positive 09/08/22 10:14 Antibody Screen TNP 09/08/22 10:14 PEG Antibody Screen Negative 09/08/22 10:14 Vitals Last Vital Signs Temp 97.7 F 09/10/22 21:28 Pulse 65 09/11/22 05:08 Resp 16 09/11/22 05:08 BP 112/66 09/11/22 05:08 Pulse Ox 97 09/11/22 05:08 O2 Del Method 09/11/22 05:08 O2 Flow Rate 8 09/10/22 11:00 Discharge Plan Discharge Patient Disposition: Home Condition: Stable Prescriptions: New hydrocodone-acetaminophen 5-325 mg tablet 1 tab PO Q4H PRN (Reason: pain) Qty: 20 0RF acetaminophen 325 mg capsule 325 mg PO Q4H PRN (Reason: fever or pain) Qty: 60 0RF ibuprofen 800 mg tablet 800 mg PO TID PRN (Reason: pain) Qty: 60 0RF Continued cholecalciferol (vitamin D3) 50 mcg (2,000 unit) tablet 50 mcg PO DAILY Qty: 30 0RF fluticasone propionate [Flonase Allergy Relief] 50 mcg/actuation spray,suspension 2 spray intranasal DAILY Qty: 16 5RF Rx Instructions: administer into each nostril montelukast [Singulair] 10 mg tablet 10 mg PO DAILY Qty: 90 1RF atorvastatin 20 mg tablet 20 mg PO BEDTIME Qty: 90 3RF ascorbic acid (vitamin C) [Vitamin C] 500 mg Capsule, Extended Release 500 mg PO DAILY Women's 50 Plus Multivitamin 400 mcg-500 mg calcium-20 mcg Tablet 1 tab PO DAILY aspirin 81 mg Tablet,Delayed Release (Dr/Ec) 81 mg PO DAILY Qty: 30 0RF Discharge Orders: Discharge Order (Routine); Ordered 09/11/22 Ordered By: Maurice Unger Referrals: Maurice Unger MD [Physician] - 2 weeks Discharge Diet: Usual diet Discharge Activity: Limit activity as instructed Patient Instructions: Opioid Safety, Vaginal Hysterectomy (GEN), Salpingo-Oophorectomy (GEN), Bladder Sling for Women (GEN) Activity Restrictions/Additional Instructions: 1. Please call [facility] on next working day to make your post-operative appointment in 2 weeks. 2. Please stay home until you come back to the clinic on first post-operative check up. 3. Please follow instructions on your medications CAREFULLY. 4. If you have abdominal incision, do not cover it unless dressing is necessary because of drainage. OK to shower, but avoid bath. Leave steri-strips until they fall off. If they are still on one week after surgery, you may remove them. 5. If you had vaginal surgery or vaginal repair, Dr. Unger may instruct you to take SITZ bath. 6. Yellow, blood tinged odorous vaginal discharge is usually normal after hysterectomy or vaginal surgeries. 7. No sexual intercourse, tampons, or douches until you are completely released from the post-operative care. 8. Avoid constipation by eating right and maybe using some Metamucil or Milk of Magnesia. 9. All prescription refills are given during the working hours. Please do no wait till it runs out. Call the clinic at [phone] before your medication runs out. The clinic will get in touch with your doctor to prescribe medications if necessary. 10. Please remain within 40 mile radius from our hospital because emergencies do happen now and then during the post-operative period. 11. If you have stairs at home, take one step at a time slowly and minimize the number of trips. It helps to stay in one floor for the next few days. No lifting except what you can lift by one hand until you are released from the post-operative care. 12. Driving is discouraged until you are well healed. It may be 3-4 weeks before you feel strong enough to drive. You should be able to turn and look through the rear window without pain and you should be able to push the brake pedal very hard without pain before you drive. No fast rules, but SAFETY should be your primary concern. DO NOT drive if you are on sedating medications such as narcotics. 13. Call the clinic (during working hours) to make urgent appointment or go to the Emergency room, if any of the following occurs: i. Vaginal bleeding becomes heavy, more than a period. ii. Incision becomes red and sore, or drains pus. iii. Your temperature is over 100.4 or you have chill. iv. IV site becomes red and swollen (a little ``knot?? is usually OK) v. Persistent nausea and vomiting vi. Persistent constipation or diarrhea vii. Rash or allergic reaction to medications. Discharge Attestations ELECTRICAL MECHANICAL TECHNICIAN Time Spent in Discharge Care*: greater than 30 min Status at Discharge: Cognitive status at discharge: cognitively intact, Behavioral status at discharge: cooperative, Coding Level of Care Code Acute Code for Chg Fwd
[2022-09-11] MEDS: montelukast sodium 10 mg Tablet PO (08:56)
[2022-09-11] MEDS: aspirin 81 mg EC Tablet PO (08:56)
[2022-09-11] MEDS: docusate sodium 100 mg Capsule PO (08:56)
[2022-09-11] MEDS: multivitamin therapeutic Tablet 1 TAB PO (08:56)
[2022-09-11] MEDS: ascorbic acid 500 mg Tablet PO (08:56)
[2022-09-11] MEDS: fluticasone nasal spray 16gm Btl 2 SPRAY INTRANASAL (08:56)
[2022-09-11] MEDS: cholecalciferol (vitamin D3) 1,000 unit Tablet 2000 UNIT PO (08:56)
[2022-09-11 08:58] VITALS: BP 128/75; PULSE 58; RESP 15; TEMP 36.8; O2SAT 98
[2022-09-11 14:30] VITALS: BP 135/78; PULSE 67; RESP 14; TEMP 36.6
--- NOTE | 2022-09-11 14:31 | PC.NURSE ---
Patient verbalized understanding of all catheter care instructions and when to [facility] for [facility] removal. No further needs at this time.
== END 2022-09-11 14:32 | disposition home or self-care (01) ==
LOC: OBGYN 11:07
PROVIDERS: Admitting Provider Obstetrics & Gynecology; PCP Nurse Practitioner; Visit Provider Obstetrics & Gynecology
PROC: (CPT 57288; principal; 2022-09-10 07:40)
PROC: (CPT 58720; 2022-09-10 07:40)
PROC: (CPT 57288; 2022-09-10 07:40)
PROC: 0TJB8ZZ Inspection of Bladder, Via Natural or Artificial Opening Endoscopic (ICD-10-PCS; CPT 52000; 2022-09-10 07:40)
DX: D25.9 Leiomyoma of uterus, unspecified (principal); N84.0 Polyp of corpus uteri; E78.5 Hyperlipidemia, unspecified; Z79.82 Long term (current) use of aspirin
CPT/HCPCS: 57288; 58262; 36415; 51702; 80053; 81001; 85025; 85027; 86850; 86900; 88307; 96374; 96376; C1713; G0378; J0694; J1100; J1170; J1200; J1885; J2250; J2405; J2704; J3010; J3490; J7030; J7040; J7121; Q9968

== ENCOUNTER 2023-08-04 14:29 | Outpatient (CLI) | payer MEDICAID, SELFPAY ==
--- NOTE | 2023-08-04 14:37 | MM_ITS ---
WS: [id number] DIAGNOSTIC BILATERAL DIGITAL BREAST TOMOSYNTHESIS MAMMOGRAPHY WITH CAD LEFT breast ultrasound, limited HISTORY: R92.8 - Other abnormal and inconclusive findings on diagn... COMPARISON: 07/21/2022, 12/19/2021 and 06/13/2021 TECHNIQUE: Bilateral craniocaudad, mediolateral oblique, and mediolateral views are submitted with to mosynthesis and SM. Spot compression LEFT CC and MLO. Computer aided detection utilized. Breast composition: There are scattered areas of fibroglandular density. Reidentified is a 6 mm mass in the anterior lateral LEFT breast near 2-3 o'clock. No interval change in size. No new mass or calc ifications. Ultrasound to follow. LEFT breast ultrasound, limited. Reidentified is the ovoid nodule at 2:00, 3 cm from the nipple measuring 9 x 8 x 5 mm. Most likely th is is a benign lymph node. IMPRESSION: MM/[place] [id number] BI-RADS: 2-Benign FOLLOW UP: 1 Year Follow-up Return to annual screening mammography.
--- NOTE | 2023-08-04 15:30 | US_ITS ---
WS: [id number] DIAGNOSTIC BILATERAL DIGITAL BREAST TOMOSYNTHESIS MAMMOGRAPHY WITH CAD LEFT breast ultrasound, limited HISTORY: R92.8 - Other abnormal and inconclusive findings on diagn... COMPARISON: 07/21/2022, 12/19/2021 and 06/13/2021 TECHNIQUE: Bilateral craniocaudad, mediolateral oblique, and mediolateral views are submitted with to mosynthesis and SM. Spot compression LEFT CC and MLO. Computer aided detection utilized. Breast composition: There are scattered areas of fibroglandular density. Reidentified is a 6 mm mass in the anterior lateral LEFT breast near 2-3 o'clock. No interval change in size. No new mass or calc ifications. Ultrasound to follow. LEFT breast ultrasound, limited. Reidentified is the ovoid nodule at 2:00, 3 cm from the nipple measuring 9 x 8 x 5 mm. Most likely th is is a benign lymph node. IMPRESSION: US/US breast LT limited* [id number] BI-RADS: 2-Benign FOLLOW UP: 1 Year Follow-up Return to annual screening mammography.
== END 2023-08-04 14:30 | disposition home or self-care (01) ==
PROVIDERS: PCP Nurse Practitioner; Visit Provider Nurse Practitioner
DX: R92.8 Other abnormal and inconclusive findings on diagnostic imaging of breast (principal)
CPT/HCPCS: 76642; 77062; G0279

== ENCOUNTER → 2024-03-28 08:10 | Outpatient (BNVA) | payer MEDICAID, SELFPAY | PROVIDERS: PCP Nurse Practitioner; Visit Provider Nurse Practitioner | DX: Z13.6 Encounter for screening for cardiovascular disorders (principal); E55.9 Vitamin D deficiency, unspecified | CPT/HCPCS: 80053; 80061; 82306; 82607; 84443; 85025 ==

== ENCOUNTER 2024-04-25 08:01 | Day surgery (SDC) | payer MEDICAID, SELFPAY ==
[2024-04-25 08:11] VITALS: BMI 28.1
[2024-04-25 08:16] VITALS: BP 154/98; PULSE 76; RESP 18; TEMP 36.7; O2SAT 97
[2024-04-25] MEDS: sodium chloride 0.9% 1,000 ML 30 ML IV (08:23)
--- NOTE | 2024-04-25 09:02 | ANES.PREANE2 ---
Pre-Anesthetic Assessment Height/Weight: Height 1.73 m Weight 83.915 kg Temp Pulse Resp BP Pulse Ox O2 Del Method 98.1 F 76 18 154/98 97 Room Air 04/25/24 08:16 04/25/24 08:16 04/25/24 08:16 04/25/24 08:16 04/25/24 08:16 04/25/24 08:16 Preop Diagnosis: Screening Operation Date: 04/25/24 09:00 Proposed Procedures p Colonoscopy 10766, G0121, Z12.11(Not Applicable) - Dale Simental MD Was Beta Char taken within 24 hours: N/A Was Clonidine taken within 24 hours: N/A Last intake: Intake Last Liquid Date 04/24/24 Last Liquid Time 20:30 Last Solid Date 04/23/24 Last Solid Time 21:00 Social No alcohol and No tobacco Exam alert, oriented x 3, clear to auscultation bilaterally and regular rate & rhythm Airway Submandibular: within normal limits Cervical ROM: within normal limits Mallampati: Class II Dentition: full History/ROS No significant history except as noted Pulmonary Allergies CV/HEM None reported None reported Hepatic None reported GI None reported Metabolic Morbid Obesity [facility] [place] None reported Neuropsych None reported Anesthetic Plan ASA status: 2 Anesthesia: Anesthesia Evaluation and MAC Medications/Allergies Home Medications Medication Instructions Recorded Confirmed Last Taken Type fluticasone propionate 50 2 spray intranasal DAILY #16 grams 05/15/22 04/21/24 04/21/24 Rx mcg/actuation nasal spray,suspension (Flonase Allergy Relief) acetaminophen 325 mg capsule 325 mg PO Q4H PRN fever or pain 09/11/22 04/21/24 Unknown Rx #60 caps cetirizine 10 mg tablet (Zyrtec) 10 mg PO DAILY #30 tabs 02/26/23 04/21/24 04/21/24 Rx estradiol 0.01% (0.1 mg/gram) 1 g vaginal DAILY Vaginal dryness 11/16/23 04/21/24 04/21/24 Rx vaginal cream #42.5 grams atorvastatin 20 mg tablet 20 mg PO BEDTIME #30 tabs 03/29/24 04/21/24 Unknown Rx Allergies Allergy/AdvReac Type Severity Reaction Status Date / Time No Known Allergies Allergy Verified 03/24/24 13:05 Current Medications Generic Name Dose Route Start Last Admin Trade Name Freq PRN Reason Stop Dose Admin Sodium Chloride 1,000 mls @ 30 mls/hr 04/25/24 08:15 04/25/24 08:23 Sodium Chloride 0.9% IV 30 mls/hr .Q24H SPRING Administration PFSH Anesthesia Medical History Hyperlipidemia, mixed Asthma Overweight (BMI 25.0-29.9) Surgical History History of total vaginal hysterectomy (~09/10/22) TVH, BSO, Single incision mid urethral sling, cystoscopy. History of tubal ligation Family History Other Diabetes Hypertension Denies family history of Dementia Chronic kidney disease (CKD) Lung disease Cancer Stroke Social History Smoking and tobacco/nicotine status: never used tobacco/nicotine Second hand smoke exposure: No Alcohol intake: never Substance/Drug Use: never Adopted: No Caregiver/support person: No Lives independently: Yes Household members: none Housing: House Marital status: / Number of children: 2 service: No Current occupational status: unemployed Pets and animals: Yes Do you think of yourself as: Straight/Heterosexual Current gender identity: Female Data Anesthesia Cardiac Studies: Echocardiogram 03/28/22 Sestamibi Stress Test (Cardiology) 03/31/22 Cardiac Event Monitor 04/03/22
--- NOTE | 2024-04-25 09:23 | W.PM.OPSUD ---
Surgery/Procedure H&P Update DATE OF PROCEDURE: April 25, 2024 DATE H&P PERFORMED: 03/31/24 H&P UPDATE INFORMATION: I have reviewed H&P completed within last 30 days, I have examined patient prior to procedure and No changes to prior documentation PREOP DIAGNOSIS: Screening PLANNED PROCEDURE: Operation Date: 04/25/24 09:00 Proposed Procedures p Colonoscopy 98737, G0121, Z12.11(Not Applicable) - Dale Simental MD
[2024-04-25 09:46] VITALS: BP 136/87; PULSE 71; RESP 18; TEMP 36.2; O2SAT 98
[2024-04-25 09:57] VITALS: BP 144/77; PULSE 77; RESP 18; O2SAT 93
[2024-04-25 10:10] VITALS: BP 121/70; PULSE 76; RESP 18; O2SAT 97
--- NOTE | 2024-04-25 10:25 | ANE.PACU2 ---
Inpatient post-anesthesia follow up: Airway intact: Yes Vital signs: Temperature 97.2 F Pulse Rate 76 Respiratory Rate 18 Blood Pressure 121/70 Pulse Oximetry 97 Oxygen Delivery Me thod Room Air Oxygen Flow Rate Fraction of Inspir ed Oxygen Hydration adequate: Yes Nausea and vomiting: No Pain level: 1 Mental status: Baseline
== END 2024-04-25 10:25 | disposition home or self-care (01) ==
PROVIDERS: PCP Nurse Practitioner; Visit Provider Student in an Organized Health Care Education/Training Program
PROC: 0DJD8ZZ Inspection of Lower Intestinal Tract, Via Natural or Artificial Opening Endoscopic (ICD-10-PCS; CPT 45378; principal; 2024-04-25 09:00)
DX: Z12.11 Encounter for screening for malignant neoplasm of colon (principal); D12.2 Benign neoplasm of ascending colon; E66.01 Morbid (severe) obesity due to excess calories; Z68.28 Body mass index [BMI] 28.0-28.9, adult; E78.2 Mixed hyperlipidemia
CPT/HCPCS: 45380; 45385; 88305; J2704; J7030

== ENCOUNTER → 2024-07-18 11:53 | Outpatient (BNVA) | payer MEDICAID, SELFPAY | PROVIDERS: PCP Nurse Practitioner; Visit Provider Nurse Practitioner Family | DX: R07.89 Other chest pain (principal) | CPT/HCPCS: 71046 ==

== ENCOUNTER 2024-08-05 10:33 | Outpatient (CLI) | payer MEDICAID, SELFPAY ==
--- NOTE | 2024-08-05 11:00 | MM_ITS ---
WS: [id number] BILATERAL SCREENING DIGITAL TOMOSYNTHESIS MAMMOGRAM WITH CAD HISTORY: Z12.39 - Encounter for other screening for malignant neop... COMPARISON: 08/04/2023, 07/21/2022, 12/19/2021 Bilateral CC and MLO views with tomosynthesis and synthetic mammography submitted. Computer aided detection analyzed. Breast composition: The breasts are almost entirely fatty. No suspicious masses, microcalcifications or architectural distortion. Lymph node in the anterior lateral LEFT breast is stable. MM/MM scr BI tomosynthesis [id number] IMPRESSION: BI-RADS: 2 - Benign. FOLLOW UP: 1 Year Follow-up
== END 2024-08-05 10:34 | disposition home or self-care (01) ==
PROVIDERS: PCP Nurse Practitioner Family; Visit Provider Nurse Practitioner Family
DX: Z12.31 Encounter for screening mammogram for malignant neoplasm of breast (principal); R92.313 Mammographic fatty tissue density, bilateral breasts; R59.0 Localized enlarged lymph nodes
CPT/HCPCS: 77063; 77067

== ENCOUNTER → 2024-08-15 15:31 | Outpatient (BNVA) | payer MEDICAID, SELFPAY | PROVIDERS: PCP Nurse Practitioner Family; Visit Provider Nurse Practitioner Family | DX: R05.9 Cough, unspecified (principal) | CPT/HCPCS: 71046 ==

== ENCOUNTER 2024-08-26 07:33 | Outpatient (CLI) | payer MEDICAID, SELFPAY ==
--- NOTE | 2024-08-26 08:00 | US_ITS ---
WS: [id number] US pelv w/transvag [id number] HISTORY: R10.9 - Unspecified abdominal pain, hysterectomy. COMPARISON: None available. Complete hysterectomy. Neither ovary nor uterus identified. There is no midline mass or fluid. Transvaginal imaging is also performed demonstrating no abnormality within the pelvis. US/US pelv w/transvag [id number] IMPRESSION: Negative pelvic ultrasound. Patient status post complete hysterectomy.
== END 2024-08-26 07:34 | disposition home or self-care (01) ==
LOC: RAD 07:33
PROVIDERS: PCP Nurse Practitioner Family; Visit Provider Nurse Practitioner Family
DX: R10.9 Unspecified abdominal pain (principal); Z90.710 Acquired absence of both cervix and uterus
CPT/HCPCS: 76830; 76856

== ENCOUNTER 2024-08-29 07:33 | Outpatient (CLI) | payer MEDICAID, SELFPAY ==
--- NOTE | 2024-08-29 07:36 | US_ITS ---
WS: [id number] Complete ABDOMINAL ULTRASOUND HISTORY: ABDOMINAL PAIN/PELVIC PAIN/CHOLELITHIASIS COMPARISON: 03/28/2022 Liver: 15.3 cm in length. Normal size liver. Diffuse coarse echotexture. The entire liver is not imaged due to attenuation. No mass or bile duct dilatation. Portal Vein: Normal hepatopetal flow with monophasic waveform. Gallbladder: Normally distended gallbladder with no stones or wall thickening. CBD: 0.4 cm Pancreas: Obscured. Difficult to visualize. Right kidney: 9.4 cm x 5.1 x 4.9 cm. Cortex:1.0 cm. Normal size and echogenicity. No hydronephrosis or mass. Left kidney: 9.7 cm x 5.0 cm x 4.9 cm. Cortex: 1.1 cm. Normal size and echogenicity. No hydronephrosis or mass. Spleen: 11.8 cm. Normal size and echogenicity. Aorta and IVC: Unremarkable abdominal aorta and IVC. US/US abdomen complete* [id number] Impression: 1. Status post cholecystectomy. 2. Moderate hepatic steatosis. 3. No hepatobiliary dilatation. 4. No hydronephrosis.
== END 2024-08-29 07:34 | disposition home or self-care (01) ==
LOC: RAD 07:34
PROVIDERS: PCP Nurse Practitioner Family; Visit Provider Nurse Practitioner Family
DX: R10.9 Unspecified abdominal pain (principal); Z90.49 Acquired absence of other specified parts of digestive tract; K76.0 Fatty (change of) liver, not elsewhere classified
CPT/HCPCS: 76700

== ENCOUNTER → 2024-09-19 09:36 | Outpatient (BNVA) | payer MEDICAID, SELFPAY | PROVIDERS: PCP Nurse Practitioner Family; Visit Provider Nurse Practitioner Family | DX: R53.83 Other fatigue (principal) | CPT/HCPCS: 80053; 80061; 82306; 82607; 84443; 85025 ==

== ENCOUNTER → 2024-12-21 11:02 | Outpatient (BNVA) | payer MEDICAID, SELFPAY | PROVIDERS: PCP Nurse Practitioner Family; Visit Provider Nurse Practitioner Family | DX: E55.9 Vitamin D deficiency, unspecified (principal); E78.2 Mixed hyperlipidemia; R79.89 Other specified abnormal findings of blood chemistry | CPT/HCPCS: 80053; 80061; 82306; 85025 ==